=== PATIENT | female | born 1940 | race Caucasian/White ===

== ENCOUNTER → 2016-12-16 | Outpatient (CLI) | payer OTHER, MEDICARE ==
[~2016-12-16] MED LIST: ASCAUNK PO; ATOR-24 PO; BISA-16 PO; CALCTAB7 PO; CARV25TA PO; CIME-56 PO; CLOP1TAB54 PO; DIAZ5TAB PO; GABA800T PO; LCTS240 PO; LISI-461 PO; LORA10TA5 PO; LSX/40 PO; MCRK20 PO; MULTTAB58 PO; TOPI25TA10 PO; hydrocodone/apap PO
[2016-12-16 13:32] LABS: BLOOD UREA NITROGEN 14 mg/dl (7-18); BUN/CREATININE RATIO 14.7 (10-20); CALCIUM 8.9 mg/dl (8.5-10.1); CARBON DIOXIDE 25 mmol/L (21-32); CHLORIDE 110 mmol/L (98-107); CREATININE 0.95 mg/dl (0.60-1.20); GLUCOSE 82 mg/dl (70-99); POTASSIUM 4.3 mmol/L (3.5-5.1); SODIUM 144 mmol/L (136-145)
== END | disposition home or self-care (01) ==
LOC: C.LABMFLN 11:12
PROVIDERS: ATTEND Family Medicine
DX: I10 Essential (primary) hypertension (principal)

== ENCOUNTER → 2017-04-15 | Outpatient (CLI) | payer OTHER, MEDICARE ==
[2017-04-15 13:30] LABS: ALT/SGPT 32 U/L (12-78); BLOOD UREA NITROGEN 14 mg/dl (7-18); BUN/CREATININE RATIO 16.5 (10-20); CALCIUM 8.7 mg/dl (8.5-10.1); CARBON DIOXIDE 23 mmol/L (21-32); CHLORIDE 113 mmol/L (98-107); CHOLESTEROL 182 mg/dl (0-200); CREATININE 0.88 mg/dl (0.60-1.20); GLUCOSE 99 mg/dl (70-99); POTASSIUM 3.9 mmol/L (3.5-5.1); SODIUM 145 mmol/L (136-145)
[2017-04-15 13:37] LABS: CHOLESTEROL/HDL RATIO 2.3; HDL CHOLESTEROL 80 mg/dl; TRIGLYCERIDES 87 mg/dl (0-150); VERY LOW DENSITY LIPOPROT CALC 17 mg/dl
== END | disposition home or self-care (01) ==
LOC: C.LABMFLN 06:54
PROVIDERS: ATTEND Family Medicine
DX: I50.30 Unspecified diastolic (congestive) heart failure (principal); I25.10 Atherosclerotic heart disease of native coronary artery without angina pectoris

== ENCOUNTER → 2017-04-29 | Outpatient (CLI) | payer OTHER, MEDICARE | END | disposition home or self-care (01) | LOC: C.PATHSPEC 13:22 | PROVIDERS: ATTEND Family Medicine | DX: C44.722 Squamous cell carcinoma of skin of right lower limb, including hip (principal) ==

== ENCOUNTER → 2017-06-29 | Outpatient (CLI) | payer OTHER, MEDICARE | END | disposition home or self-care (01) | LOC: C.PATHSPEC 08:27 | PROVIDERS: ATTEND Family Medicine | DX: C44.92 Squamous cell carcinoma of skin, unspecified (principal) ==

== ENCOUNTER → 2018-01-28 | Outpatient (CLI) | payer OTHER, MEDICARE ==
[~2018-01-28] MED LIST changes: -LORA10TA5 PO; +LORA10TA6 PO
[2018-01-28 13:37] LABS: ALT/SGPT 33 U/L (12-78); BLOOD UREA NITROGEN 16 mg/dl (7-18); CARBON DIOXIDE 26 mmol/L (21-32); CHOLESTEROL 190 mg/dl (0-200); CREATININE 0.97 mg/dl (0.60-1.20); GLUCOSE 89 mg/dl (70-99); LDL CHOLESTEROL (DIRECT) 97 mg/dl; POTASSIUM 4.1 mmol/L (3.5-5.1); SODIUM 143 mmol/L (136-145)
== END | disposition home or self-care (01) ==
LOC: C.LABMFLN 08:26
PROVIDERS: ATTEND Family Medicine
DX: E78.00 Pure hypercholesterolemia, unspecified (principal); I11.0 Hypertensive heart disease with heart failure; I50.30 Unspecified diastolic (congestive) heart failure

== ENCOUNTER 2021-12-25 07:18 | Observation (INO) ==
--- NOTE | 2021-12-25 08:50 | History & Physical Report ---
Date of Service December 25, 2021 Assessment & Plan (1) Left bundle branch block: (2) CAD (coronary artery disease): (3) Cardiomyopathy: Plan: 1. Reduced EF with LBBB and persistent symptoms here for implant of BiV ICD History of Present Illness Chief Complaint: dyspnea Primary Care Provider: Ty Gerber MD Patient with a history of a non-schemic CM and LBBB. Persisitent NYHA class II symptoms and reduced EF. Allergies Allergy/AdvReac Type Severity Reaction Status Date / Time cortisone Allergy Intermediate face Verified 12/25/21 07:44 swelling lisinopril Allergy Intermediate face Verified 12/25/21 07:44 swelling atorvastatin AdvReac Unknown DIDN'T Verified 12/25/21 07:44 FEEL WELL Home Medications Medication Instructions Recorded Confirmed Type calcium carbonate 500 mg-vitamin 1 tab PO BID #180 tab 10/08/20 12/25/21 Rx D3 5 mcg (200 unit) tablet (Calcium 500 + D) tramadol 50 mg tablet 50 mg PO DAILY PRN #30 tab 04/25/21 12/25/21 Rx acetaminophen 650 mg 650 - 1,300 mg PO Q12H PRN 07/24/21 12/25/21 History tablet,extended release aspirin 81 mg chewable tablet 81 mg PO QAM 07/24/21 12/25/21 History carvedilol 25 mg tablet (Coreg) 25 mg PO Q12H 08/01/21 12/25/21 History gabapentin 100 mg capsule See Rx Instructions .ROUTE 09/08/21 12/25/21 Rx .COMPLEX #60 cap losartan 25 mg tablet 25 mg PO DAILY #30 tab 10/21/21 12/25/21 Rx ropinirole 3 mg tablet 3 mg PO HS #30 tab 10/24/21 12/25/21 Rx topiramate 50 mg tablet See Rx Instructions .ROUTE 10/24/21 12/25/21 Rx .COMPLEX #180 tab donepezil 10 mg tablet 10 mg PO DAILY 10/27/21 12/25/21 History duloxetine 30 mg capsule,delayed 30 mg PO DAILY 10/27/21 12/25/21 History release furosemide 40 mg tablet See Rx Instructions .ROUTE 10/27/21 12/25/21 Rx .COMPLEX #90 tablet multivitamin 1 tab PO QAM 10/27/21 12/25/21 History ropinirole 0.5 mg tablet 1 mg PO DAILY tab 10/27/21 12/25/21 History lactobacillus combination no.9 4 4,000 mmu cells PO DAILY 11/07/21 12/25/21 History billion cell capsule (Adult 50 Plus Probiotic) clopidogrel 75 mg tablet (Plavix) 75 mg PO QAM #90 tab 11/10/21 12/25/21 Rx Past Med/Surg History Medical History (Updated 11/24/21 @ 09:40 by Sabrina Ramirez PA-C) defect 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 otherwise mild nonobstructive CAD" Chronic combined systolic and diastolic CHF (congestive heart failure) EF 30-35% on May 2021 ECHO Chronic pain Secondary to nerve damage- mostly on right side of body Diastolic dysfunction Esophageal reflux disease Well controlled and stable Hypercholesterolemia Hypertension, benign Left bundle branch block Chronic Migraine HX Nasal fracture S/P FALL OCTOBER 2020 Non-ischemic cardiomyopathy Osteoarthritis Peripheral neuropathy RIGHT LEG Restless legs syndrome SOB (shortness of breath) on exertion SOMETIMES Spinal stenosis Transient ischemic attack (TIA) (~10/27/21) OVER 15 YEARS AGO/TAKING PLAVIX Surgical History History of back surgery laminctomy lumbar spine History of carpal tunnel release RT/LEFT History of cataract surgery RT/LEFT History of colonoscopy History of nasal septoplasty septo plasty and bilateral inferior turbinate reduction on 08/15/21 - Dr. Luevano History of neck surgery cervical laminectomy History of tonsillectomy and adenoidectomy Hx of tympanostomy tubes Maxillary fracture REPAIRED 10/2020 ([facility])- No issues with opening or closing jaw Family History Father Myocardial infarction Mother COPD (chronic obstructive pulmonary disease) Daughter Asthma Other Cancer Hearing loss No family history of adverse response to anesthesia Denies family history of Ovarian cancer Prostate cancer Breast cancer Colorectal cancer Hypertension Social History Smoking Status: Never smoker Second Hand Exposure: Yes (parents and in laws smoked. ); Hx Alcohol Use: No Hx Substance Use: No Preferred Language: Thai Communication Ability: Effective Visual Impairment: Partially Limited Hearing Ability: Use of Hearing Aid Cytotechnologist/Cytology Supervisor Required: No Beliefs That Will Affect Care: None marital status: Current Living Situation: Spouse current occupational status: retired How many Children do You have: 2 Other Information That Helps Us Care for You: No Feels Safe at Home: Yes Safety Concerns: Feels Safe At This Time Childhood Exposure to Second-Hand Smoke: Yes caffeine: Yes (coffee) during the past year weight has: remained stable Dental Care, Regularly: Yes Physical Activity Frequency: Does not Exercise Seatbelt Use: always Sunscreen Use: Yes Do you think of yourself as: straight/heterosexual Assistive Devices: None Review of Systems Review of Systems: per HPI Physical Exam Physical Exam: Alert Sclerae anicteric Normal respiratory effort Regular heart rhythm Minimal edema Results & Data Results & Data ([facility]) Vital Signs (Past 12 Hours) Vital Signs Temp Pulse Resp BP Pulse Ox 12/25/21 07:47 82 148/111 H 12/25/21 07:31 36.8 C 89 17 97
--- NOTE | 2021-12-25 08:51 | Pre Anesthesia Assessment ---
Date of Service December 25, 2021 Pre Sedation Assessment Vital Signs Temp Pulse Resp BP Pulse Ox 12/25/21 07:47 82 148/111 H 12/25/21 07:31 36.8 C 89 17 97 Cardiovascular + regular rate and + regular rhythm Respiratory + respiratory effort normal Pre-Sedation Airway Assessment Smoking Status: Never smoker Hx Sleep Apnea: No Hx Difficult Intubation: No Short, Thick Neck: No Thyromental Distance: > or= 3.5 Finger Breadths Oral Cavity: + WNL Mallampati Class: III ASA: ASA3 NPO Status Date of Last Intake of Fluids: 12/24/21 Date of Last Intake of Solid Food: 12/24/21 Procedure Planning Contraindications for Sedation: none Current Medications Reviewed: Yes Notes The planned sedation has been discussed with the patient. Informed Consent was obtained. I have identified the patient, determined the appropriateness of sedation and have assessed the patient immediately prior to the procedure. All medicine(s) and interventions are by my order.
[2021-12-25] MEDS ORDERED: VANCOMYCIN HCL 1000MG/20ML VIAL ONE (08:55)
[2021-12-25] MEDS ORDERED: BUPIVACAINE 0.25% 30 ML VIAL ONE (08:55)
[2021-12-25] MEDS ORDERED: LIDOCAINE 1% LOCAL 20 ML VIAL ONE (08:55)
[2021-12-25] MEDS ORDERED: WATER, STERILE FOR INJ 10 ML VIAL ONE (08:55)
[2021-12-25] MEDS ORDERED: MIDAZOLAM HCL 5 MG/ML 1 ML VIAL ONE (09:05)
[2021-12-25] MEDS ORDERED: ceFAZolin 330 MG/ML 1 GM VIAL ONE (09:05)
[2021-12-25] MEDS ORDERED: fentaNYL citrate 100 MCG/2 ML VIAL ONE (09:05)
[2021-12-25] MEDS ORDERED: oxyCODONE HCL IR 5 MG TAB (IMMEDIATE RELEASE) PO PRN (10:35)
--- NOTE | 2021-12-25 10:35 | Post Anesthesia Assessment ---
Date of Service December 25, 2021 Post Sedation Assessment Vital Signs Temp Pulse Resp BP Pulse Ox 12/25/21 07:47 82 148/111 H 12/25/21 07:31 36.8 C 89 17 97 Recovery Score Activity: Moves 4 extremities Respiration: Deep Breath/Cough Circulation: +/-20% PreAnes Value Consciousness: Fully Awake Oxygen Saturation: > 92% On Room Air Discharge Sedation Level of Care: Fast Track Phase II Post Sedation Plan On clinical assessment, the patient appears to have tolerated the sedation without complications. Patient is recovering as anticipated. Patient will continue to be monitored by nursing and may be discharged when sedation discharge criteria are met per below protocol. Upon Completions of procedure up to 15 minutes continue every 5 minute vital signs and the P.A.R. score; then discharge to a Phase I or Fast Track to Phase II per the following guidelines: * Discharge Patient to appropriate Phase II area if PAR is 8 or greater or return to pre- procedure baseline. The post - procedure orders will be as directed. * If PAR score is less than 8 or not return to pre-procedure baseline then patient will follow Phase I monitoring till PAR is reached for Phase II. The Phase I may be done in procedure room or may call to secure a Phase I area. * If naloxone or flumazenil are used for reversal, hold in Phase I for continued monitoring from when last reversal dose was given for a minimum of 60 minutes or longer pending the nurse and/or physician discretion of patient condition before discharge to Phase II. Please call the Sedation Physician to re-evaluate and complete post-note for discharge to Phase II area. Do NOT discharge from procedure sedation or Phase 1 until post- sedation evaluation note is complete by procedure /sedation MD Sedation Discharge Instructions to be given to the patient at discharge to home.
--- NOTE | 2021-12-25 10:35 | Electrophysiology Report ---
Date of Service December 25, 2021 Electrophysiology Procedure Electrophysiology Procedure Report Procedure performed: Implant of biventricular ICD Staff chief electrician: Salvador Lang MD Indication: The patient is an 81-year-old woman with a history of a nonischemic cardiomyopathy. She is on guideline directed medical therapy. She has an ejection fraction less than 35%. She has not suffered a myocardial infarction in the past 45 days or had revascularization in the last 90 days. She is [place] heart Association class 2 symptoms and the anticipated longevity greater than 1 year. She is therefore felt to be a good candidate for an ICD as primary prevention of sudden cardiac . Additionally, she has a left bundle branch block morphology on her EKG, is in a sinus rhythm and a QRS duration of 149 milliseconds. She was therefore felt to be a good candidate for BOAT DECKHAND. Procedure in detail: The patient was informed the risks benefits and alternatives to the intended procedure. She understood which proceed. She was taken to the electrophysiology suite in a fasting state. Conscious sedation was administered per protocol the patient was monitored electrocardiographically throughout today's procedure. Preoperative antibiotic was administered. The left upper pectoral areas prepped and draped in usual sterile fashion. This area was anesthetized using subcutaneous menstruation lidocaine solution. Incision was made at the site and carried down the prepectoralis fascia using sharp dissection. Electrocautery was also used for dissection as well as for hemostasis. A device pocket was fashioned tissues above the pectoralis muscle. Subsequent to this maneuver the left axillary vein was accessed 3 times using modified Seldinger technique. Sheaths were placed over guidewires initially used facilitate passage of the right ventricular and right atrial leads to the respective chambers under fluoroscopic guidance. Adequate sensing threshold parameters were obtained prior to active fixation of this lead to the endocardial surface. The proximal portion leads were then sutured to prepectoralis fascia using nonabsorbable suture. A sheath was placed over the remaining guidewire and used facilitate passage of the guiding catheter for engagement of the coronary sinus. Once engaged limited coronary sinus venography was performed in order to identify suitable target vessel. Once identified standard guidewire techniques were employed in order to deliver the pacing lead to the target vessel. Adequate sensing and threshold parameters as well as the absence of diaphragmatic stimulation for a short prior to removal of the guiding catheter. The proximal portion of lead was then sutured to prepectoralis fascia using nonabsorbable suture. The device pocket was irrigated with antibiotic solution. The leads were then attached to the device. The device and leads were then placed in the pocket the pocket was closed in 3 layers of absorbable suture. Steri-Strips and sterile dressing were applied. The device was tested noninvasively prior conclusion the procedure. The patient tolerated procedure well. There were no immediate complications. Equipment used: Pulse generator: Commercial Assistant [employer] Video. Model number [id number] serial number [id number] Right atrial lead: Commercial Assistant Medtronic model 5076 serial number [id number] Right ventricular lead: Commercial Assistant Medtronic model 6935 mm serial number [id number] Left ventricular lead: Commercial Assistant Medtronic model 4[place] [id number] V Measured data: Right atrial lead: P-waves measured 1 mV. Pacing threshold 1 volts at 0.4 milliseconds with a pacing impedance of 646 Ohms Right ventricular lead: R-waves measured 20 mV. Pacing threshold 0.75 volts at 0.4 millisecond with a pacing impedance of 475 Ohms Left ventricular lead: Pacing threshold 1.25 volts at 1 millisecond with a pacing impedance of 703 Ohms Impression: Successful implantation of biventricular ICD MNPG Electrophysiology codes Pacing Procedure 1: Pacin BiV electrode w/Pacer / ICD implant, add on code ICD Procedure 1: ICD: 81210 Insert single or dual ICD system PG Moderate Sedation Codes Moderate Sedation Codes Procedure 1: Sedation/Anesthesia: 09478 Mod Sedation by the same physician;Init15 Min Child Age 5 & Up Procedure 2: Sedation/Anesthesia: 61317 Mod Sedation by the same physician; Ea [id number] Minutes
[2021-12-25] MEDS ORDERED: traMADol HCL 50 MG TABLET PO PRN (10:37)
[2021-12-25] MEDS: carvediloL 25 MG TAB PO SCH ×2 (14:13→23:40)
[2021-12-25] MEDS: ACETAMINOPHEN 325 MG TAB PO PRN (14:28)
[2021-12-25] MEDS ORDERED: LOSARTAN POTASSIUM 25 MG TAB PO ONE (15:30)
[2021-12-25] MEDS: ceFAZolin 1000MG 1,000 MG/7.5 ML SYR IV SCH (20:09)
[2021-12-25] MEDS: CALCIUM 600MG + VIT D 400 IU TAB PO SCH (20:16)
[2021-12-25] MEDS ORDERED: TOPIRAMATE 50 MG TAB PO SCH (21:00)
[2021-12-25] MEDS ORDERED: GABAPENTIN 100 MG CAP PO SCH (21:00)
[2021-12-25] MEDS ORDERED: rOPINIRole HCL 1 MG TABLET PO SCH (21:00)
[2021-12-26] MEDS: ceFAZolin 1000MG 1,000 MG/7.5 ML SYR IV SCH (03:14)
[2021-12-26] MEDS: ACETAMINOPHEN 325 MG TAB PO PRN (08:10)
[2021-12-26] MEDS: CALCIUM 600MG + VIT D 400 IU TAB PO SCH (08:11)
[2021-12-26] MEDS ORDERED: MULTIVITAMIN TAB PO SCH (09:00)
[2021-12-26] MEDS ORDERED: DULoxetine HCL 30 MG CAP PO SCH (09:00)
[2021-12-26] MEDS ORDERED: rOPINIRole HCL 1 MG TABLET PO SCH (09:00)
[2021-12-26] MEDS ORDERED: ADVANCED PROBIOTIC 1250 MG CAPSULE PO SCH (09:00)
[2021-12-26] MEDS ORDERED: DONEPEZIL HCL 10 MG TAB PO SCH (09:00)
[2021-12-26] MEDS ORDERED: LOSARTAN POTASSIUM 25 MG TAB PO SCH (09:00)
[2021-12-26] MEDS ORDERED: CLOPIDOGREL BISULFATE 75 MG TAB PO SCH (09:00)
[2021-12-26] MEDS ORDERED: ASPIRIN 81 MG CHEW PO SCH (09:00)
--- NOTE | 2021-12-26 09:42 | XRay Report ---
XR chest 2V PA/lateral HISTORY: 81 years-old Female EXACT TIME ORDERED Evaluate for pneumothorax and l status post placemen t of a left subclavian pacer COMPARISON: None TECHNIQUE: PA and lateral views of the chest FINDINGS: The cardiac mediastinal and hilar silhouettes are within normal limits. Left subclavian pacer/AICD. N o postprocedural pneumothorax. No pleural effusion, airspace consolidation or overt pulmonary edema. Degenerative changes of the shoulders and spine. Calcified plaque the thoracic aorta. IMPRESSION: Status post placement of a left subclavian pacer/AICD. No postprocedural pneumothorax. ACT 112: Negative or not required by law. The above report was generated using voice recognition software. It may contain grammatical, syntax o r spelling errors. Electronically signed by: Nicolas Oliveira M.D. 12/26/2021 9:41 AM
[2021-12-26] MEDS ORDERED: FUROSEMIDE 40 MG/4 ML VIAL IV ONE (10:27)
--- NOTE | 2021-12-26 11:30 | Discharge Summary ---
Date of Service December 26, 2021 Admission HPI Per Admitting Provider Patient with a history of a non-schemic CM and LBBB. Persisitent NYHA class II symptoms and reduced EF. Principal Diagnosis Cardiomyopathy Discharge Exam At the time of discharge the patient had a very mild amount of swelling at the device implant site. There was ecchymosis but no drainage. Minimal tenderness. Discharge Data Allergies Allergy/AdvReac Type Severity Reaction Status Date / Time cortisone Allergy Intermediate face Verified 12/25/21 07:44 swelling lisinopril Allergy Intermediate face Verified 12/25/21 07:44 swelling atorvastatin AdvReac Unknown DIDN'T Verified 12/25/21 07:44 FEEL WELL Procedures Performed Operation Date: 12/25/21 08:30 Actual Procedures p ICD Insertion Single or Dual - Salvador Lang MD s Lead LV (No Priopr Implant) - Salvador Lang MD s Upgrade of any system to BIV - Salvador Lang MD s Venogram, Unilateral - Salvador Lang MD Ordered Studies 12/25/21 06:45 EP Lab Images for PACS ONCE Hospital Course (1) Left bundle branch block: (2) CAD (coronary artery disease): (3) Cardiomyopathy: 1. Reduced EF with LBBB and persistent symptoms here for implant of BiV ICD On the day of admission the patient underwent successful implantation of a biventricular ICD. There were no immediate complications. Following morning device interrogation revealed normal device function with some diaphragmatic stimulation at the programmed vector. Reprogramming eliminated this problem. Chest x-ray demonstrated stable lead position without pneumothorax. Total Time Total Time Spent Total Time Spent (In Minutes): 20 Discharge Plan Discharge Items Patient Disposition: Home - Self-Care Reason For Visit: BIV ICD Discharge Diagnosis: cardiomyopathy Condition on Discharge: Good Activity: Per Instructions section Activity Comment: No lifting left arm above shoulder behind neck for 6 weeks Lifting: No more than 10 pounds Bathing: Keep incision dry Bathing Comment: Keep wound dry and Steri-Strips intact until follow-up next week Driving/Machine Use: Resume 1 day after discharge Non-emergency contact: Photocopying Machine Operator Call non-emergency contact if: your pain is worsening, you have a fever, your wound has increased redness and your wound has increased drainage Follow-up/Referrals: Ty Gerber MD [Primary Care Provider] - 12/29/21 8:00 am Diet: Heart Healthy Addtl Attending Provider Instructions: Follow-up [facility] 01/16 at 10:20 a.m. for nurse wound check Pending Studies at Discharge: No Stand-Alone Forms: My [facility], Smoking Cessation Medications and DC Order Prescriptions: Continued gabapentin 100 mg capsule See Rx Instructions .ROUTE .COMPLEX Qty: 60 RF: 5 topiramate 50 mg tablet See Rx Instructions .ROUTE .COMPLEX Qty: 180 RF: 0 ropinirole 3 mg tablet 3 mg PO HS Qty: 30 RF: 2 furosemide 40 mg tablet See Rx Instructions .ROUTE .COMPLEX Qty: 90 RF: 1 clopidogrel [Plavix] 75 mg tablet 75 mg PO QAM Qty: 90 RF: 3 Adult 50 Plus Probiotic 4 billion cell capsule 4,000 mmu cells PO DAILY RF: 0 duloxetine 30 mg capsule,delayed release(DR/EC) 30 mg PO DAILY RF: 0 donepezil 10 mg tablet 10 mg PO DAILY RF: 0 calcium carbonate-vitamin D3 [Calcium 500 + D] 500 mg(1,250mg) -200 unit tablet 1 tab PO BID Qty: 180 RF: 3 tramadol 50 mg tablet 50 mg PO DAILY PRN (Reason: Pain) Qty: 30 RF: 5 ropinirole 0.5 mg tablet 1 mg PO DAILY RF: 0 multivitamin Tablet 1 tab PO QAM RF: 0 losartan 25 mg tablet 25 mg PO DAILY Qty: 30 RF: 2 aspirin 81 mg tablet,chewable 81 mg PO QAM RF: 0 acetaminophen 650 mg Tablet Extended Release 650 - 1,300 mg PO Q12H PRN (Reason: Pain) RF: 0 carvedilol [Coreg] 25 mg tablet 25 mg PO Q12H RF: 0 Discharge Orders: Discharge Order (Routine); Ordered 12/26/21 Ordered By: Salvador Lang Admission Data Admit Date/Time: 12/25/21 12:12 Attending Provider: Salvador Lang Admit Provider: Salvador Lang Primary Care Provider: Ty Gerber Other Interventions: Discharge Summary Assessment (RN) Last Done: 12/26/21 11:08 Coding Level of Care Code 34872 OBS Care - Discharge Diagnoses Left bundle branch block I44.7 CAD (coronary artery disease) I25.10 Cardiomyopathy I42.9
--- NOTE | 2021-12-26 12:03 | Electrocardiogram Report ---
Test Reason : Blood Pressure : / mmHG Vent. Rate : 101 BPM Atrial Rate : 101 BPM P-R Int : 138 ms QRS Dur : 118 ms QT Int : 404 ms P-R-T Axes : 049 027 006 degrees QTc Int : 523 ms Atrial-sensed ventricular-paced rhythm Biventricular pacemaker detected Abnormal ECG No previous ECGs available Confirmed by Salvador Lang ([id number]) on 12/26/2021 12:03:23 PM Referred By: Ambrocio Lang Confirmed By:Ambrocio Lang
[2021-12-26] MEDS: carvediloL 25 MG TAB PO SCH (12:43)
== END 2021-12-26 14:47 | disposition home or self-care (01) ==
LOC: EP 07:18 → 2E 07:18
PROC: EPB.ICD (2021-12-25 08:30)

== ENCOUNTER 2021-12-30 16:53 | Inpatient (IN) ==
--- NOTE | 2021-12-30 17:21 | Emergency Department Note ---
Impression & Plan C. difficile diarrhea, Hypomagnesemia, Acute hypokalemia, Acute dehydration ED Provider Note NAME: GERARDO CHOWDHURY AGE: 81 SEX: F : 1940 ARRIVES VIA: Walk-In INFORMANT: Patient, ED PROVIDER(S): Jason Thibodeaux MD Chief Complaint: Diarrhea, weakness, possible UTI HPI: Patient presents with family due to the above concerns which have gotten progressively worse. The patient states that she developed diarrhea on Wednesday and had had an AICD defibrillator pacemaker placed on with Dr. Heath. Patient denies any fevers or chills. The patient states she has had about 8 bowel movements per day but denies any blood in the stool. The patient denies any changes in medications, diet and no stream or well water. No known sick contacts or recent travel. The patient was recently hospitalized for her procedure. Patient does have some chronic lower extremity swelling but it is fairly unchanged. The patient has not had any nausea or vomiting. Patient does have chronic cough which is unchanged from prior. Patient is a non-smoker. Patient is vaccinated for COVID-19. ROS: See HPI for pertinent positives and negatives. A total of 10 systems were reviewed and otherwise negative. Past medical history: See below Surgical history: See below Social history: See below Physical Exam: GENERAL: NAD, wearing glasses, wearing a mask, non-toxic. EYE EXAM: Normal conjunctiva. PERRL, no anisocoria and EOM's grossly intact w/o pain. OROPHARYNX: Moist mucus membranes. Grossly normal dentition. NECK: Supple, no nuchal rigidity, no adenopathy, non-tender. No signs of meningismus. Chest: Left-sided swelling over the defibrillator/pacer pocket with associated ecchymosis but no active drainage or bleeding. LUNGS: Clear to auscultation. Normal chest wall mechanics. HEART: NSR, no MRG. ABDOMEN: Abdomen soft, non-tender, normo-active bowel sounds, no masses, no rebound or guarding. BACK: No CVA TTP. SKIN: No rashes and no bruising. UPPER EXTREMITIES: Upper extremities are grossly normal. LOWER EXTREMITIES: Grossly normal, no edema. NEURO EXAM: A&O x3, cranial nerves II-XII grossly intact, normal speech, moves all 4 extremities on command w/o issue. Differential diagnoses: Infection, dehydration, metabolic abnormality, hypo/hyperglycemia, electrolyte disturbance, anemia, hypoxia, cardiac sources, intracerebral event, toxicologic, neurologic, as well as other pathologies. Course: Patient was seen and evaluated the bedside. Full history physical exam was performed. EKG interpreted by me AV paced rhythm with PVCs. Rate of 93, wide QRS, left bundle branch block pattern. Imaging Studies: See Below Cardiac monitoring: An order was placed for continuous cardiac monitoring. The monitor shows a rate of 92 with sinus rhythm. MDM: Patient was seen due to concern for diarrhea. Work was obtained. Patient is white count of 13 with a normal H&H and platelet count. The patient's kidney function is unremarkable with the patient does have hypomagnesemia and hypokalemia. Given the patient's recent pacemaker defibrillator placement believe the patient would benefit from admission observation replacement of electrolytes. Magnesium potassium ordered. Urinalysis with no obvious signs of infection. Patient did have a stool culture completed which showed that she was positive for C. difficile. This was conveyed to the hospitalist and the patient was admitted to Dr. Montilla. 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 otherwise mild nonobstructive CAD" Chronic combined systolic and diastolic CHF (congestive heart failure) EF 30-35% on May 2021 ECHO Chronic pain Secondary to nerve damage- mostly on right side of body Diastolic dysfunction Esophageal reflux disease Well controlled and stable Hypercholesterolemia Hypertension, benign Left bundle branch block Chronic Migraine HX Nasal fracture S/P FALL OCTOBER 2020 Non-ischemic cardiomyopathy Osteoarthritis Peripheral neuropathy RIGHT LEG Restless legs syndrome SOB (shortness of breath) on exertion SOMETIMES Spinal stenosis Transient ischemic attack (TIA) (~10/27/21) OVER 15 YEARS AGO/TAKING PLAVIX Surgical History History of back surgery laminctomy lumbar spine History of carpal tunnel release RT/LEFT History of cataract surgery RT/LEFT History of colonoscopy History of nasal septoplasty septo plasty and bilateral inferior turbinate reduction on 08/15/21 - Dr. Luevano History of neck surgery cervical laminectomy History of tonsillectomy and adenoidectomy Hx of tympanostomy tubes Maxillary fracture REPAIRED 10/2020 ([facility])- No issues with opening or closing jaw Pacemaker Family History Father Myocardial infarction Mother COPD (chronic obstructive pulmonary disease) Daughter Asthma Other Cancer Hearing loss No family history of adverse response to anesthesia Denies family history of Ovarian cancer Prostate cancer Breast cancer Colorectal cancer Hypertension Social History Smoking Status: Never smoker Second Hand Exposure: Yes (parents and in laws smoked. ); Hx Alcohol Use: No Hx Substance Use: No Preferred Language: [place] Communication Ability: Effective Visual Impairment: Partially Limited Hearing Ability: Use of Hearing Aid Retail Agent Required: No Beliefs That Will Affect Care: None marital status: Current Living Situation: Spouse current occupational status: retired How many Children do You have: 2 Feels Safe at Home: Yes Childhood Exposure to Second-Hand Smoke: Yes caffeine: Yes (coffee) during the past year weight has: remained stable Dental Care, Regularly: Yes Physical Activity Frequency: Does not Exercise Seatbelt Use: always Sunscreen Use: Yes Do you think of yourself as: straight/heterosexual Assistive Devices: None Allergies Allergies Allergy/AdvReac Type Severity Reaction Status Date / Time cortisone Allergy Intermediate face Verified 12/30/21 18:24 swelling lisinopril Allergy Intermediate face Verified 12/30/21 18:24 swelling atorvastatin AdvReac Unknown DIDN'T Verified 12/30/21 18:24 FEEL WELL Home Meds Home Medications Medication Instructions Recorded Confirmed acetaminophen 650 mg 650 - 1,300 mg PO Q12H PRN 07/24/21 12/30/21 tablet,extended release aspirin 81 mg chewable tablet 81 mg PO QAM 07/24/21 12/30/21 carvedilol 25 mg tablet (Coreg) 25 mg PO Q12H 08/01/21 12/30/21 donepezil 10 mg tablet 10 mg PO DAILY 10/27/21 12/30/21 duloxetine 30 mg capsule,delayed 30 mg PO DAILY 10/27/21 12/30/21 release multivitamin 1 tab PO QAM 10/27/21 12/30/21 ropinirole 0.5 mg tablet 1 mg PO QDL tab 10/27/21 12/30/21 lactobacillus combination no.9 4 4,000 mmu cells PO DAILY 11/07/21 12/30/21 billion cell capsule (Adult 50 Plus Probiotic) furosemide 40 mg tablet 40 mg PO DAILY 12/30/21 12/30/21 gabapentin 100 mg capsule 200 mg PO HS 12/30/21 12/30/21 losartan 25 mg tablet 25 mg PO DAILY 12/30/21 12/30/21 pravastatin 80 mg tablet 80 mg PO DAILY 12/30/21 12/30/21 topiramate 50 mg tablet 100 mg PO HS 12/30/21 12/30/21 Previous Rx's Medication Instructions Recorded calcium carbonate 500 mg-vitamin 1 tab PO BID #180 tab 10/08/20 D3 5 mcg (200 unit) tablet (Calcium 500 + D) tramadol 50 mg tablet 50 mg PO DAILY PRN #30 tab 04/25/21 ropinirole 3 mg tablet 3 mg PO HS #30 tab 10/24/21 clopidogrel 75 mg tablet (Plavix) 75 mg PO QAM #90 tab 11/10/21 Results & Data (ED) Vital Signs Vital Signs - 24 hr 12/30/21 16:59 12/30/21 17:30 12/30/21 18:00 Temperature 36.6 C Temperature Source Temporal Artery Scan Pulse Rate 95 H 97 H 102 H Pulse Rate from SpO2 Sensor 96 H 84 Respiratory Rate 16 21 15 Respiratory Effort / Characteristics Non-Labored Spontaneous Respiratory Depth Normal Respiratory Pattern Regular Blood Pressure 121/65 144/76 H 134/83 Blood Pressure Mean 83 98 100 Pulse Oximetry 97 98 98 Oxygen Delivery Method Room Air Room Air Room Air Sepsis Recent Fever Within 48 Hours No Sepsis New/Unexplained Change in Mental Status No Sepsis Action Taken by Nursing No Action Required 12/30/21 18:30 12/30/21 18:56 12/30/21 19:31 Temperature Temperature Source Pulse Rate 93 H 97 H 99 H Pulse Rate from SpO2 Sensor Respiratory Rate 22 16 13 Respiratory Effort / Characteristics Respiratory Depth Respiratory Pattern Blood Pressure 150/59 H 151/59 H 132/73 Blood Pressure Mean 89 89 92 Pulse Oximetry 97 99 100 Oxygen Delivery Method Room Air Room Air Room Air Sepsis Recent Fever Within 48 Hours Sepsis New/Unexplained Change in Mental Status Sepsis Action Taken by Nursing 12/30/21 20:30 Temperature Temperature Source Pulse Rate 96 H Pulse Rate from SpO2 Sensor Respiratory Rate 16 Respiratory Effort / Characteristics Respiratory Depth Respiratory Pattern Blood Pressure 109/61 Blood Pressure Mean 77 Pulse Oximetry 98 Oxygen Delivery Method Room Air Sepsis Recent Fever Within 48 Hours Sepsis New/Unexplained Change in Mental Status Sepsis Action Taken by Skilled Nursing Medications Current Medication List: was personally reviewed by me Laboratory Data Attestation: I reviewed the patient's lab results. Result diagrams: 12/30/21 17:30 12/30/21 17:30 Lab Results 12/30/21 12/30/21 12/30/21 Range/Units 17:30 17:30 17:30 WBC 13.83 H (4.8-10.8) K/uL RBC 3.95 L (4.2-5.4) M/uL Hgb 12.7 (12.0-16.0) g/dL Hct 38.7 (37-47) % MCV 98.0 (80-100) fL MCH 32.2 (25-34) pg MCHC 32.8 (32-36) g/dL RDW Std Deviation 47.6 H (36.4-46.3) fL RDW Coeff of Shahrzad 13.2 (11.5-14.5) % Plt Count 164 (130-400) K/uL MPV 10.6 H (7.4-10.4) fL Immature Gran % (Auto) 0.2 % Neut % (Auto) 79.9 % Lymph % (Auto) 6.9 % Knott % (Auto) 12.4 % Eos % (Auto) 0.4 % Baso % (Auto) 0.2 % Neut # (Auto) 11.05 H (1.4-6.5) K/uL Lymph # (Auto) 0.96 L (1.2-3.4) K/uL Knott # (Auto) 1.71 H (0.11-0.59) K/uL Eos # (Auto) 0.05 (0-0.5) K/uL Baso # (Auto) 0.03 (0-0.2) K/uL Immature Gran # (Auto) 0.03 H (0.00-0.02) K/uL Toxic Granulation 1+ Sodium 136 (136-145) mmol/L Potassium 2.6 L (3.5-5.1) mmol/L Chloride 101 (98-107) mmol/L Carbon Dioxide 24 (21-32) mmol/L Anion Gap 11 (3-11) BUN 21 (6-23) mg/dl Creatinine 0.90 (0.6-1.2) mg/dl Est Cr Clr Drug Dosing 41.0 ml/min Est GFR ( Amer) 69.5 ml/min Est GFR (Non-Af Amer) 60.0 ml/min BUN/Creatinine Ratio 23.3 H (10-20) Glucose 128 H (70-99(Fasting)) mg/dl Calcium 9.0 (8.5-10.1) mg/dl Magnesium 1.6 L (1.7-2.4) mg/dl Total Bilirubin 0.7 (0.2-1.0) mg/dl AST 19 (13-39) U/L ALT 6 L (7-52) U/L Alkaline Phosphatase 50 (34-104) U/L Troponin I 0.03 (0-0.04) ng/ml Total Protein 6.4 (6.0-8.3) gm/dl Albumin 3.8 (3.4-5.0) gm/dl Globulin 2.6 (2.5-4.0) gm/dl Albumin/Globulin Ratio 1.5 (0.9-2) TSH 2.404 (0.300-4.500) uIu/ml Urine Color Urine Appearance (Clear) Urine pH (4.5-7.5) Ur Specific [place] (1.000-1.030) Urine Protein (Negative) Urine Glucose (UA) (Negative) Urine Ketones (Negative) Urine Blood (Negative) Urine Nitrite (Negative) Urine Bilirubin (Negative) Urine Urobilinogen (Negative) Ur Leukocyte Esterase (Negative) Urine WBC (Auto) (0-5) /hpf Urine RBC (Auto) (0-4) /hpf U Hyaline Cast (Auto) (0-5) /lpf U Epithel Cells (Auto) (0-5) /lpf Urine Bacteria (Auto) (Negative) Stl C. cayetanensis PCR (NotDetected) Stool Rotavirus A PCR (NotDetected) Stl Adenov F 40/41 PCR (NotDetected) Stool Astrovirus (PCR) (NotDetected) Stool Campylobacter PCR (NotDetected) Stl C.difficile Tox A&B (Negative) Stl C. diff Tox A/B PCR (NotDetected) Stool Cryptosporidium PCR (NotDetected) Stl E.coli Shiga Tox PCR (NotDetected) Stl Enterotoxigenic E PCR (NotDetected) Stool EPEC (PCR) (NotDetected) Stool EAEC (PCR) (NotDetected) Stl E. histolytica PCR (NotDetected) Stool Giardia Lamblia PCR (NotDetected) Stool Salmonella PCR (NotDetected) Stool Sapovirus (PCR) (NotDetected) Stl P. shigelloides PCR (NotDetected) Stl Shigella/EIEC PCR (NotDetected) St Y.enterocolitica PCR (NotDetected) Stool Vibrio (PCR) (NotDetected) Stl Vibrio cholerae PCR (NotDetected) Stl Norovirus GI/GII PCR (NotDetected) SARS-CoV-2, RNA, NAAT (NEGATIVE) 12/30/21 12/30/21 12/30/21 Range/Units 18:06 18:06 18:19 WBC (4.8-10.8) K/uL RBC (4.2-5.4) M/uL Hgb (12.0-16.0) g/dL Hct (37-47) % MCV (80-100) fL MCH (25-34) pg MCHC (32-36) g/dL RDW Std Deviation (36.4-46.3) fL RDW Coeff of Shahrzad (11.5-14.5) % Plt Count (130-400) K/uL MPV (7.4-10.4) fL Immature Gran % (Auto) % Neut % (Auto) % Lymph % (Auto) % Knott % (Auto) % Eos % (Auto) % Baso % (Auto) % Neut # (Auto) (1.4-6.5) K/uL Lymph # (Auto) (1.2-3.4) K/uL Knott # (Auto) (0.11-0.59) K/uL Eos # (Auto) (0-0.5) K/uL Baso # (Auto) (0-0.2) K/uL Immature Gran # (Auto) (0.00-0.02) K/uL Toxic Granulation Sodium (136-145) mmol/L Potassium (3.5-5.1) mmol/L Chloride (98-107) mmol/L Carbon Dioxide (21-32) mmol/L Anion Gap (3-11) BUN (6-23) mg/dl Creatinine (0.6-1.2) mg/dl Est Cr Clr Drug Dosing ml/min Est GFR ( Amer) ml/min Est GFR (Non-Af Amer) ml/min BUN/Creatinine Ratio (10-20) Glucose (70-99(Fasting)) mg/dl Calcium (8.5-10.1) mg/dl Magnesium (1.7-2.4) mg/dl Total Bilirubin (0.2-1.0) mg/dl AST (13-39) U/L ALT (7-52) U/L Alkaline Phosphatase (34-104) U/L Troponin I (0-0.04) ng/ml Total Protein (6.0-8.3) gm/dl Albumin (3.4-5.0) gm/dl Globulin (2.5-4.0) gm/dl Albumin/Globulin Ratio (0.9-2) TSH (0.300-4.500) uIu/ml Urine Color Yellow Urine Appearance Clear (Clear) Urine pH 6.0 (4.5-7.5) Ur Specific [place] 1.011 (1.000-1.030) Urine Protein Negative (Negative) Urine Glucose (UA) Negative (Negative) Urine Ketones Trace H (Negative) Urine Blood Negative (Negative) Urine Nitrite Negative (Negative) Urine Bilirubin Negative (Negative) Urine Urobilinogen Negative (Negative) Ur Leukocyte Esterase Trace H (Negative) Urine WBC (Auto) 1-5 (0-5) /hpf Urine RBC (Auto) 0-4 (0-4) /hpf U Hyaline Cast (Auto) 1-5 (0-5) /lpf U Epithel Cells (Auto) 20-30 H (0-5) /lpf Urine Bacteria (Auto) Negative (Negative) Stl C. cayetanensis PCR Not Detected (NotDetected) Stool Rotavirus A PCR Not Detected (NotDetected) Stl Adenov F 40/41 PCR Not Detected (NotDetected) Stool Astrovirus (PCR) Not Detected (NotDetected) Stool Campylobacter PCR Not Detected (NotDetected) Stl C.difficile Tox A&B Positive Cdiff Toxin A* (Negative) Stl C. diff Tox A/B PCR C.diff Gene Detected A (NotDetected) Stool Cryptosporidium PCR Not Detected (NotDetected) Stl E.coli Shiga Tox PCR Not Detected (NotDetected) Stl Enterotoxigenic E PCR Not Detected (NotDetected) Stool EPEC (PCR) Not Detected (NotDetected) Stool EAEC (PCR) Not Detected (NotDetected) Stl E. histolytica PCR Not Detected (NotDetected) Stool Giardia Lamblia PCR Not Detected (NotDetected) Stool Salmonella PCR Not Detected (NotDetected) Stool Sapovirus (PCR) Not Detected (NotDetected) Stl P. shigelloides PCR Not Detected (NotDetected) Stl Shigella/EIEC PCR Not Detected (NotDetected) St Y.enterocolitica PCR Not Detected (NotDetected) Stool Vibrio (PCR) Not Detected (NotDetected) Stl Vibrio cholerae PCR Not Detected (NotDetected) Stl Norovirus GI/GII PCR Not Detected (NotDetected) SARS-CoV-2, RNA, NAAT NEGATIVE (NEGATIVE) Administered Medications Carvedilol (Carvedilol 25 Mg Tab) 25 mg PO Q12H HAYDEE Stop: 01/29/22 19:29 Last Admin: 12/30/21 19:44 Dose: 25 mg Documented by: [id number] Gabapentin (Gabapentin 100 Mg Cap) 200 mg PO HS HAYDEE Stop: 01/29/22 20:59 Last Admin: 12/30/21 20:03 Dose: 200 mg Documented by: [id number] Losartan Potassium (Losartan Potassium 25 Mg Tab) 25 mg PO DAILY HAYDEE Stop: 01/29/22 19:29 Last Admin: 12/30/21 19:44 Dose: 25 mg Documented by: [id number] Discontinued Medications Sodium Chloride (Nss 1000ml) 500 mls @ 999 mls/hr IV .Q31M ONE Stop: 12/30/21 18:27 Last Infusion: 12/30/21 18:45 Dose: 0 mls/hr Documented by: [id number] Admin: 12/30/21 18:02 Dose: 999 mls/hr Documented by: [id number] Magnesium Sulfate/Dextrose (Magnesium Sulfate / D5w) 1 gm in 100 mls @ 100 mls/hr IV NOW STA Stop: 12/30/21 19:57 Last Infusion: 12/30/21 20:30 Dose: 0 mls/hr Documented by: [id number] Admin: 12/30/21 19:30 Dose: 100 mls/hr Documented by: [id number] Potassium Chloride (K Garrison / Wtr) 10 meq in 100 mls @ 100 mls/hr IV ONE ONE; Protocol Stop: 12/30/21 19:57 Last Admin: 12/30/21 20:50 Dose: 100 mls/hr Documented by: [id number] Ondansetron HCl (Ondansetron Inj 2 Mg/Ml 2 Ml Vial) Confirm Administered Dose 4 mg .ROUTE .STK-MED ONE Stop: 12/30/21 20:10 Last Admin: 12/30/21 20:20 Dose: Not Given Documented by: [id number] Ondansetron HCl (Ondansetron Inj 2 Mg/Ml 2 Ml Vial) 4 mg IV NOW STA Stop: 12/30/21 20:11 Last Admin: 12/30/21 20:33 Dose: 4 mg Documented by: [id number] Potassium Chloride (Potassium Chloride Crtab 20 Meq Tabcr) 40 meq PO NOW STA Stop: 12/30/21 18:59 Last Admin: 12/30/21 19:30 Dose: 40 meq Documented by: [id number] Imaging Data Radiologist's Impression: Chest X-Ray 12/30/21 17:57 XR chest 1V portable CLINICAL HISTORY: Weakness. COMPARISON STUDY: Chest radiograph December 26, 2021. FINDINGS: Left subclavian biventricular pacer/AICD is in place. There is no evidence for pulmonary edema. No pneumothorax or pleural effusion. No consolidation. Cardiac size is at the upper limits of normal. Skinfold projects over the left chest. IMPRESSION: No acute cardiopulmonary findings. ACT 112: Negative or not required by law. Electronically signed by: Kristian Rousseau M.D. 12/30/2021 7:03 PM Discharge Plan Visit Data Chief Complaint: Diarrhea Stated Complaint: DIARRHEA, NOT EATING, DIZZY, CONFUSION, POSS UTI ED Provider: Jason Thibodeaux Discharge Problem: C. difficile diarrhea, Hypomagnesemia, Acute hypokalemia, Acute dehydration Patient Disposition: Admitted As Inpatient Forms Stand Alone Forms: My [facility] Prescriptions Prescriptions: No Action ropinirole 3 mg tablet 3 mg PO HS Qty: 30 RF: 2 clopidogrel [Plavix] 75 mg tablet 75 mg PO QAM Qty: 90 RF: 3 Adult 50 Plus Probiotic 4 billion cell capsule 4,000 mmu cells PO DAILY RF: 0 duloxetine 30 mg capsule,delayed release(DR/EC) 30 mg PO DAILY RF: 0 donepezil 10 mg tablet 10 mg PO DAILY RF: 0 calcium carbonate-vitamin D3 [Calcium 500 + D] 500 mg(1,250mg) -200 unit tablet 1 tab PO BID Qty: 180 RF: 3 tramadol 50 mg tablet 50 mg PO DAILY PRN (Reason: Pain) Qty: 30 RF: 5 ropinirole 0.5 mg tablet 1 mg PO QDL RF: 0 multivitamin Tablet 1 tab PO QAM RF: 0 pravastatin 80 mg tablet 80 mg PO DAILY RF: 0 losartan 25 mg Tablet 25 mg PO DAILY RF: 0 furosemide 40 mg tablet 40 mg PO DAILY RF: 0 gabapentin 100 mg capsule 200 mg PO HS RF: 0 topiramate 50 mg tablet 100 mg PO HS RF: 0 aspirin 81 mg tablet,chewable 81 mg PO QAM RF: 0 acetaminophen 650 mg Tablet Extended Release 650 - 1,300 mg PO Q12H PRN (Reason: Pain) RF: 0 carvedilol [Coreg] 25 mg tablet 25 mg PO Q12H RF: 0 Referrals Referrals: Ty Gerber MD [Primary Care Provider] -
[2021-12-30] MEDS ORDERED: SODIUM CHLORIDE 0.9% 1000ML 500 ML IV ONE (17:57)
[2021-12-30 18:08] LABS: Hematocrit (blood only) 38.7 % (37-47); Hemoglobin 12.7 g/dL (12.0-16.0); Mean Corpuscular Hemoglobin 32.2 pg (25-34); Mean Corpuscular Hgb Conc 32.8 g/dL (32-36); Mean Platelet Volume 10.6 fL (7.4-10.4); Platelet Count 164 K/uL (130-400); RDW Coefficient of Variation 13.2 % (11.5-14.5); RDW Standard Deviation 47.6 fL (36.4-46.3); Red Blood Count 3.95 M/uL (4.2-5.4); White Blood Count 13.83 K/uL (4.8-10.8)
[2021-12-30 18:20] LABS: Albumin Globulin Ratio 1.5 (0.9-2); Albumin Level 3.8 gm/dl (3.4-5.0); BUN Creatinine Ratio 23.3 (10-20); Bilirubin,Total 0.7 mg/dl (0.2-1.0); Est GFR (African American) 69.5 ml/min; Globulin 2.6 gm/dl (2.5-4.0); Magnesium 1.6 mg/dl (1.7-2.4); Potassium 2.6 mmol/L (3.5-5.1); Total Protein 6.4 gm/dl (6.0-8.3)
[2021-12-30 18:22] LABS: Troponin I 0.03 ng/ml (0-0.04)
[2021-12-30 18:56] LABS: Basophils # (auto) 0.03 K/uL (0-0.2); Basophils % (auto) 0.2 %; Eosinophils # (auto) 0.05 K/uL (0-0.5); Eosinophils % (auto) 0.4 %; Immature Granulocytes # (auto) 0.03 K/uL (0.00-0.02); Immature Granulocytes % (auto) 0.2 %; Lymphocytes # (auto) 0.96 K/uL (1.2-3.4); Lymphocytes % (auto) 6.9 %; Monocytes # (auto) 1.71 K/uL (0.11-0.59); Monocytes % (auto) 12.4 %; Neutrophils # (auto) 11.05 K/uL (1.4-6.5); Neutrophils % (auto) 79.9 %; Toxic Granulation 1+
[2021-12-30] MEDS ORDERED: POTASSIUM CHLORIDE CRTAB 20 MEQ TABCR PO STA (18:58)
[2021-12-30] MEDS ORDERED: MAGNESIUM SULFATE / D5W 1 GM/100 ML BAG IV STA (18:58)
[2021-12-30] MEDS ORDERED: POTASSIUM CHLORIDE / WTR 10 MEQ/100 ML PLCT IV ONE (18:58)
--- NOTE | 2021-12-30 19:04 | XRay Report ---
XR chest 1V portable CLINICAL HISTORY: Weakness. COMPARISON STUDY: Chest radiograph December 26, 2021. FINDINGS: Left subclavian biventricular pacer/AICD is in place. There is no evidence for pulmonary ed ernestine. No pneumothorax or pleural effusion. No consolidation. Cardiac size is at the upper limits of no rmal. Skinfold projects over the left chest. IMPRESSION: No acute cardiopulmonary findings. ACT 112: Negative or not required by law. Electronically signed by: Kristian Rousseau M.D. 12/30/2021 7:03 PM
[2021-12-30 19:28] LABS: Appearance Urine Clear (Clear); Bacteria Urine Automated Negative (Negative); Bilirubin Urine Negative (Negative); Blood Urine Negative (Negative); Color Urine Yellow; Epithelial Cell Urine Auto 20-30 /lpf (0-5); Glucose Urine UA Negative (Negative); Ketones Urine Trace (Negative); Leukocyte Esterase Urine Trace (Negative); Nitrite Urine Negative (Negative); Protein Urine Negative (Negative); RBC Urine Automated 0-4 /hpf (0-4); Specific Gravity Urine 1.011 (1.000-1.030); Urobilinogen Urine Negative (Negative)
[2021-12-30] MEDS ORDERED: LOSARTAN POTASSIUM 25 MG TAB PO SCH (19:30)
[2021-12-30] MEDS ORDERED: carvediloL 25 MG TAB PO SCH (19:30)
[2021-12-30] MEDS: GABAPENTIN 100 MG CAP PO SCH (20:03)
[2021-12-30] MEDS ORDERED: ONDANSETRON INJ 2 MG/ML 2 ML VIAL ONE (20:09)
[2021-12-30] MEDS ORDERED: ONDANSETRON INJ 2 MG/ML 2 ML VIAL IV STA (20:10)
[2021-12-30 20:34] LABS: Adenovirus F 40/41 PCR Not Detected (NotDetected); Astrovirus PCR Not Detected (NotDetected); Campylobacter PCR Not Detected (NotDetected); Cryptosporidium PCR Not Detected (NotDetected); Cyclospora cayetanensis PCR Not Detected (NotDetected); Entamoeba histolytica PCR Not Detected (NotDetected); Enteroaggregative E.coli(EAEC) Not Detected (NotDetected); Enteropathogenic E.coli (EPEC) Not Detected (NotDetected); Enterotoxigenic E.coli (ETEC) Not Detected (NotDetected); Giardia lamblia PCR Not Detected (NotDetected); Norovirus GI/GII PCR Not Detected (NotDetected); Plesiomonas shigelloides PCR Not Detected (NotDetected); Rotavirus A PCR Not Detected (NotDetected); Salmonella PCR Not Detected (NotDetected); Sapovirus PCR Not Detected (NotDetected); Shiga-like Toxin E.coli (STEC) Not Detected (NotDetected); Shigella/Enteroinvasive E.coli Not Detected (NotDetected); Vibrio cholerae PCR Not Detected (NotDetected); Vibrio species PCR Not Detected (NotDetected); Yersinia enterocolitica PCR Not Detected (NotDetected)
--- NOTE | 2021-12-30 20:44 | History & Physical Report ---
Date of Service December 30, 2021 Assessment & Plan (1) C. difficile diarrhea: Plan: C. difficile precautions Vancomycin 250 mg p.o. 4 times daily IV fluids for rehydration (2) Hypomagnesemia: Plan: Give total of magnesium sulfate 3 g IV Repeat magnesium level in a.m. (3) Acute hypokalemia: Plan: Potassium 2.6 upon admission given KCl 10 mEq rider and 40 mEq p.o. by the ED Placed on NSS plus KCl 20 mEq at high 25 mils per hour Repeat laboratories in a.m. (4) Acute dehydration: Plan: Rehydration as above (5) Hypercholesterolemia: Plan: Pravastatin 80 mg p.o. daily, resume after diarrhea improved (6) CAD (coronary artery disease): Plan: CAD/hypertension/diastolic dysfunction/nonischemic cardiomyopathy- Hold aspirin, clopidogrel, furosemide and losartan. Hold this evening's dose of carvedilol, and reassess blood pressure in a.m. (7) Hypertension, benign: Plan: See above (8) Confusion: Plan: Confusion- Multifactorial: C. difficile infection, electrolyte abnormalities, possibly medication induced and dehydration, among others (9) Depression: Plan: Dementia/depression/anxiety- Resume medications in a.m. Dementia may be contributing to above confusion (10) Anxiety: Plan: See above (11) Non-ischemic cardiomyopathy: Plan: See above (12) Diastolic dysfunction: Plan: See above (13) Peripheral neuropathy: Plan: Peripheral neuropathy/restless legs- Continue topiramate and ropinirole Dose of clonazepam 0.5 mg x 1 this evening History of Present Illness Chief Complaint: The patient presents to the emergency department due to recurrent episodes of diarrhea, and daughter reports that the patient has been more confused Primary Care Provider: Ty Gerber MD The patient is an 81-year-old female who reports having diarrhea for several weeks in October and November, which then resolved, and has resumed again with the resumption of losartan, which her daughter attributes her symptoms of diarrhea to. Patient is status post AICD placement by Dr. Lang 5 days ago. Work-up in the emergency department shows stool studies positive for C. difficile. Potassium 2.6, magnesium 1.6, WBC 13.83 and hemoglobin 12.7. Patient did receive from the ED the following: Magnesium 1 g IV, potassium chloride 10 mEq IV, Klor-Con 40 mEq p.o., and NSS 500 mL. She was started on vancomycin 250 mg p.o. by medicine team while still in the ED Allergies Allergy/AdvReac Type Severity Reaction Status Date / Time cortisone Allergy Intermediate face Verified 12/30/21 18:24 swelling lisinopril Allergy Intermediate face Verified 12/30/21 18:24 swelling atorvastatin AdvReac Unknown DIDN'T Verified 12/30/21 18:24 FEEL WELL Home Medications Medication Instructions Recorded Confirmed Type calcium carbonate 500 mg-vitamin 1 tab PO BID #180 tab 10/08/20 12/30/21 Rx D3 5 mcg (200 unit) tablet (Calcium 500 + D) tramadol 50 mg tablet 50 mg PO DAILY PRN #30 tab 04/25/21 12/30/21 Rx acetaminophen 650 mg 650 - 1,300 mg PO Q12H PRN 07/24/21 12/30/21 History tablet,extended release aspirin 81 mg chewable tablet 81 mg PO QAM 07/24/21 12/30/21 History carvedilol 25 mg tablet (Coreg) 25 mg PO Q12H 08/01/21 12/30/21 History ropinirole 3 mg tablet 3 mg PO HS #30 tab 10/24/21 12/30/21 Rx donepezil 10 mg tablet 10 mg PO DAILY 10/27/21 12/30/21 History duloxetine 30 mg capsule,delayed 30 mg PO DAILY 10/27/21 12/30/21 History release multivitamin 1 tab PO QAM 10/27/21 12/30/21 History ropinirole 0.5 mg tablet 1 mg PO QDL tab 10/27/21 12/30/21 History lactobacillus combination no.9 4 4,000 mmu cells PO DAILY 11/07/21 12/30/21 History billion cell capsule (Adult 50 Plus Probiotic) clopidogrel 75 mg tablet (Plavix) 75 mg PO QAM #90 tab 11/10/21 12/30/21 Rx furosemide 40 mg tablet 40 mg PO DAILY 12/30/21 12/30/21 History gabapentin 100 mg capsule 200 mg PO HS 12/30/21 12/30/21 History losartan 25 mg tablet 25 mg PO DAILY 12/30/21 12/30/21 History pravastatin 80 mg tablet 80 mg PO DAILY 12/30/21 12/30/21 History topiramate 50 mg tablet 100 mg PO HS 12/30/21 12/30/21 History Past Med/Surg History Medical History defect 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 otherwise mild nonobstructive CAD" Chronic combined systolic and diastolic CHF (congestive heart failure) EF 30-35% on May 2021 ECHO Chronic pain Secondary to nerve damage- mostly on right side of body Diastolic dysfunction Esophageal reflux disease Well controlled and stable Hypercholesterolemia Hypertension, benign Left bundle branch block Chronic Migraine HX Nasal fracture S/P FALL OCTOBER 2020 Non-ischemic cardiomyopathy Osteoarthritis Peripheral neuropathy RIGHT LEG Restless legs syndrome SOB (shortness of breath) on exertion SOMETIMES Spinal stenosis Transient ischemic attack (TIA) (~10/27/21) OVER 15 YEARS AGO/TAKING PLAVIX Surgical History History of back surgery laminctomy lumbar spine History of carpal tunnel release RT/LEFT History of cataract surgery RT/LEFT History of colonoscopy History of nasal septoplasty septo plasty and bilateral inferior turbinate reduction on 08/15/21 - Dr. Luevano History of neck surgery cervical laminectomy History of tonsillectomy and adenoidectomy Hx of tympanostomy tubes Maxillary fracture REPAIRED 10/2020 ([facility])- No issues with opening or closing jaw Pacemaker Family History Father Myocardial infarction Mother COPD (chronic obstructive pulmonary disease) Daughter Asthma Other Cancer Hearing loss No family history of adverse response to anesthesia Denies family history of Ovarian cancer Prostate cancer Breast cancer Colorectal cancer Hypertension Social History Smoking Status: Never smoker Second Hand Exposure: No; Do You Dip or Chew Tobacco: No; Hx Alcohol Use: No Hx Substance Use: No Preferred Language: Upper Sorbian Communication Ability: Effective Visual Impairment: Partially Limited Hearing Ability: Use of Hearing Aid Academic Affairs Coordinator Required: No Beliefs That Will Affect Care: None marital status: Current Living Situation: Spouse current occupational status: retired How many Children do You have: 2 Other Information That Helps Us Care for You: No Feels Safe at Home: Yes Safety Concerns: Feels Safe At This Time Childhood Exposure to Second-Hand Smoke: Yes caffeine: Yes (coffee) during the past year weight has: remained stable Dental Care, Regularly: Yes Physical Activity Frequency: Does not Exercise Seatbelt Use: always Sunscreen Use: Yes Do you think of yourself as: straight/heterosexual Assistive Devices: Cane and Glasses Review of Systems Review of Systems: The patient denies chest pain, palpitations, shortness of breath, dyspnea on exertion, cough, lower extremity swelling, sore throat, fevers, chills, sweats, vomiting, abdominal pain, pelvic pain, blood in urine or stool, dysuria, urinary frequency or urgency, lightheadedness, dizziness, headache, memory loss, loss of consciousness, imbalance, focal or generalized weakness, numbness or tingling in arms or legs, generalized arthralgias or myalgias, neck pain, or night sweats. The review of systems is otherwise negative other than for that already noted above, and at least 10 systems have been reviewed. Physical Exam Physical Exam: The patient is awake, alert, occasionally confused, well developed and well nourished, normocephalic and atraumatic, lying in bed and in no acute distress. HEENT--PERRL, EOMI, mucous membranes and oropharynx dry. Neck--supple. No JVD. No bruits. Thyroid normal, trachea midline, no adenopathy. Heart--normal S1 and S2. No murmurs, rubs or gallops. Lungs--clear bilaterally, no respiratory distress, no accessory muscle use. Abdomen--normal bowel sounds and soft. Nontender. Nondistended, no hernias or masses, no organomegaly. Extremities--no cyanosis or clubbing. No edema. Dermatologic--normal skin turgor, normal color, no abnormal lymph nodes, no rash. Neurologic--cranial nerves II through XII grossly intact. Rheumatologic--normal range of motion. Psychiatric--normal affect. Results & Data Results & Data ([facility]) Vital Signs (Past 12 Hours) Vital Signs Temp Pulse Resp BP Pulse Ox 12/30/21 19:31 99 H 13 132/73 100 12/30/21 18:56 97 H 16 151/59 H 99 12/30/21 18:30 93 H 22 150/59 H 97 12/30/21 18:00 102 H 15 134/83 98 12/30/21 17:30 97 H 21 144/76 H 98 12/30/21 16:59 36.6 C 95 H 16 121/65 97 Laboratory Results Laboratory Results WBC 13.83 K/uL (4.8-10.8) H 12/30/21 17:30 RBC 3.95 M/uL (4.2-5.4) L 12/30/21 17:30 Hgb 12.7 g/dL (12.0-16.0) 12/30/21 17:30 Hct 38.7 % (37-47) 12/30/21 17:30 MCV 98.0 fL (80-100) 12/30/21 17:30 MCH 32.2 pg (25-34) 12/30/21 17:30 MCHC 32.8 g/dL (32-36) 12/30/21 17:30 RDW Std Deviation 47.6 fL (36.4-46.3) H 12/30/21 17:30 RDW Coeff of Shahrzad 13.2 % (11.5-14.5) 12/30/21 17:30 Plt Count 164 K/uL (130-400) 12/30/21 17:30 MPV 10.6 fL (7.4-10.4) H 12/30/21 17:30 Immature Gran % (Auto) 0.2 % 12/30/21 17:30 Neut % (Auto) 79.9 % 12/30/21 17:30 Lymph % (Auto) 6.9 % 12/30/21 17:30 [place] % (Auto) 12.4 % 12/30/21 17:30 Eos % (Auto) 0.4 % 12/30/21 17:30 Baso % (Auto) 0.2 % 12/30/21 17:30 Neut # (Auto) 11.05 K/uL (1.4-6.5) H 12/30/21 17:30 Lymph # (Auto) 0.96 K/uL (1.2-3.4) L 12/30/21 17:30 [place] # (Auto) 1.71 K/uL (0.11-0.59) H 12/30/21 17:30 Eos # (Auto) 0.05 K/uL (0-0.5) 12/30/21 17:30 Baso # (Auto) 0.03 K/uL (0-0.2) 12/30/21 17:30 Immature Gran # (Auto) 0.03 K/uL (0.00-0.02) H 12/30/21 17:30 Toxic Granulation 1+ 12/30/21 17:30 Sodium 136 mmol/L (136-145) 12/30/21 17:30 Potassium 2.6 mmol/L (3.5-5.1) L 12/30/21 17:30 Chloride 101 mmol/L (98-107) 12/30/21 17:30 Carbon Dioxide 24 mmol/L (21-32) 12/30/21 17:30 Anion Gap 11 (3-11) 12/30/21 17:30 BUN 21 mg/dl (6-23) 12/30/21 17:30 Creatinine 0.90 mg/dl (0.6-1.2) 12/30/21 17:30 Est Cr Clr Drug Dosing 41.0 ml/min 12/30/21 17:30 Est GFR ( Amer) 69.5 ml/min 12/30/21 17:30 Est GFR (Non-Af Amer) 60.0 ml/min 12/30/21 17:30 BUN/Creatinine Ratio 23.3 (10-20) H 12/30/21 17:30 Glucose 128 mg/dl (70-99(Fasting)) H 12/30/21 17:30 Calcium 9.0 mg/dl (8.5-10.1) 12/30/21 17:30 Magnesium 1.6 mg/dl (1.7-2.4) L 12/30/21 17:30 Total Bilirubin 0.7 mg/dl (0.2-1.0) 12/30/21 17:30 AST 19 U/L (13-39) 12/30/21 17:30 ALT 6 U/L (7-52) L 12/30/21 17:30 Alkaline Phosphatase 50 U/L (34-104) 12/30/21 17:30 Troponin I 0.03 ng/ml (0-0.04) 12/30/21 17:30 Total Protein 6.4 gm/dl (6.0-8.3) 12/30/21 17:30 Albumin 3.8 gm/dl (3.4-5.0) 12/30/21 17:30 Globulin 2.6 gm/dl (2.5-4.0) 12/30/21 17: Albumin/Globulin Ratio 1.5 (0.9-2) 12/30/21 17:30 TSH 2.404 uIu/ml (0.300-4.500) 12/30/21 17:30 Urine Color Yellow 12/30/21 18:06 Urine Appearance Clear (Clear) 12/30/21 18:06 Urine pH 6.0 (4.5-7.5) 12/30/21 18:06 Ur Specific [place] 1.011 (1.000-1.030) 12/30/21 18:06 Urine Protein Negative (Negative) 12/30/21 18:06 Urine Glucose (UA) Negative (Negative) 12/30/21 18:06 Urine Ketones Trace (Negative) H 12/30/21 18:06 Urine Blood Negative (Negative) 12/30/21 18:06 Urine Nitrite Negative (Negative) 12/30/21 18:06 Urine Bilirubin Negative (Negative) 12/30/21 18:06 Urine Urobilinogen Negative (Negative) 12/30/21 18:06 Ur Leukocyte Esterase Trace (Negative) H 12/30/21 18:06 Urine WBC (Auto) 1-5 /hpf (0-5) 12/30/21 18:06 Urine RBC (Auto) 0-4 /hpf (0-4) 12/30/21 18:06 U Hyaline Cast (Auto) 1-5 /lpf (0-5) 12/30/21 18:06 U Epithel Cells (Auto) 20-30 /lpf (0-5) H 12/30/21 18:06 Urine Bacteria (Auto) Negative (Negative) 12/30/21 18:06 Stl C. cayetanensis PCR Not Detected (NotDetected) 12/30/21 18:06 Stool Rotavirus A PCR Not Detected (NotDetected) 12/30/21 18:06 Stl Adenov F 40/41 PCR Not Detected (NotDetected) 12/30/21 18:06 Stool Astrovirus (PCR) Not Detected (NotDetected) 12/30/21 18:06 Stool Campylobacter PCR Not Detected (NotDetected) 12/30/21 18:06 Stl C.difficile Tox A&B Positive Cdiff Toxin (Negative) A* 12/30/21 18:06 Stl C. diff Tox A/B PCR C.diff Gene Detected (NotDetected) A 12/30/21 18:06 Stool Cryptosporidium PCR Not Detected (NotDetected) 12/30/21 18:06 Stl E.coli Shiga Tox PCR Not Detected (NotDetected) 12/30/21 18:06 Stl Enterotoxigenic E PCR Not Detected (NotDetected) 12/30/21 18:06 Stool EPEC (PCR) Not Detected (NotDetected) 12/30/21 18:06 Stool EAEC (PCR) Not Detected (NotDetected) 12/30/21 18:06 Stl E. histolytica PCR Not Detected (NotDetected) 12/30/21 18:06 Stool Giardia Lamblia PCR Not Detected (NotDetected) 12/30/21 18:06 Stool Salmonella PCR Not Detected (NotDetected) 12/30/21 18:06 Stool Sapovirus (PCR) Not Detected (NotDetected) 12/30/21 18:06 Stl P. shigelloides PCR Not Detected (NotDetected) 12/30/21 18:06 Stl Shigella/EIEC PCR Not Detected (NotDetected) 12/30/21 18:06 St Y.enterocolitica PCR Not Detected (NotDetected) 12/30/21 18:06 Stool Vibrio (PCR) Not Detected (NotDetected) 12/30/21 18:06 Stl Vibrio cholerae PCR Not Detected (NotDetected) 12/30/21 18:06 Stl Norovirus GI/GII PCR Not Detected (NotDetected) 12/30/21 18:06 SARS-CoV-2, RNA, NAAT NEGATIVE (NEGATIVE) 12/30/21 18:19 Impressions Chest X-Ray 12/30/21 17:57 XR chest 1V portable CLINICAL HISTORY: Weakness. COMPARISON STUDY: Chest radiograph December 26, 2021. FINDINGS: Left subclavian biventricular pacer/AICD is in place. There is no evidence for pulmonary edema. No pneumothorax or pleural effusion. No consolidation. Cardiac size is at the upper limits of normal. Skinfold projects over the left chest. IMPRESSION: No acute cardiopulmonary findings. ACT 112: Negative or not required by law. Electronically signed by: Kristian Rousseau M.D. 12/30/2021 7:03 PM Code Status & VTE Plan Code Status Full code VTE Prophylaxis Plan VTE Prophylaxis will be ordered: Yes PG Care Time/CCT Total # of Minutes Spent Total Time Spent with Patient: Total time spent is greater than 50% in coordination of care (as documented) at patient's floor/unit and/or counseling patient: Coding Level of Care Code 87288 Initial Inpt Care Lvl 3 Diagnoses C. difficile diarrhea A04.72 Hypomagnesemia E83.42 Acute hypokalemia E87.6 Acute dehydration E86.0 Peripheral neuropathy G62.9 Hypercholesterolemia E78.00 Hypertension, benign I10 CAD (coronary artery disease) I25.10 Anxiety F41.9 Confusion R41.0 Depression F32.9 Non-ischemic cardiomyopathy I42.8 Diastolic dysfunction I51.89
[2021-12-30 21:13] LABS: Cdiff Antigen Positive; Cdiff Toxin A+B Positive Cdiff Toxin (Negative)
[2021-12-30] MEDS: RASPBERRY SYRUP 5 ML UDP PO SCH (22:25)
[2021-12-30] MEDS: VANCOMYCIN HCL 250 MG/5 ML SOLN PO SCH (22:26)
[2021-12-30] MEDS ORDERED: ONDANSETRON INJ 2 MG/ML 2 ML VIAL IV PRN (22:38)
[2021-12-30] MEDS ORDERED: ACETAMINOPHEN 325 MG TAB PO PRN (22:38)
[2021-12-30] MEDS: NSS + 20MEQ KCL 20 MEQ/1,000 ML BAG IV SCH (23:33)
[2021-12-30] MEDS: rOPINIRole HCL 1 MG TABLET PO SCH (23:33)
[2021-12-30] MEDS: TOPIRAMATE 100 MG TAB PO SCH (23:33)
[2021-12-30] MEDS: MAGNESIUM SULFATE / D5W 1 GM/100 ML BAG IV SCH (23:33)
[2021-12-31] MEDS: MAGNESIUM SULFATE / D5W 1 GM/100 ML BAG IV SCH (01:08)
[2021-12-31] MEDS: RASPBERRY SYRUP 5 ML UDP PO SCH ×4 (04:50→21:28)
[2021-12-31] MEDS: VANCOMYCIN HCL 250 MG/5 ML SOLN PO SCH ×4 (04:51→21:28)
[2021-12-31 07:18] LABS: Hematocrit (blood only) 34.9 % (37-47); Hemoglobin 11.2 g/dL (12.0-16.0); Mean Corpuscular Hemoglobin 31.6 pg (25-34); Mean Corpuscular Hgb Conc 32.1 g/dL (32-36); Mean Corpuscular Volume 98.6 fL (80-100); Mean Platelet Volume 10.1 fL (7.4-10.4); Platelet Count 147 K/uL (130-400); RDW Coefficient of Variation 13.3 % (11.5-14.5); RDW Standard Deviation 48.1 fL (36.4-46.3); Red Blood Count 3.54 M/uL (4.2-5.4); White Blood Count 12.36 K/uL (4.8-10.8)
[2021-12-31 07:41] LABS: Basophils # (auto) 0.03 K/uL (0-0.2); Basophils % (auto) 0.2 %; Eosinophils # (auto) 0.13 K/uL (0-0.5); Eosinophils % (auto) 1.1 %; Immature Granulocytes # (auto) 0.02 K/uL (0.00-0.02); Immature Granulocytes % (auto) 0.2 %; Lymphocytes # (auto) 1.33 K/uL (1.2-3.4); Lymphocytes % (auto) 10.8 %; Monocytes # (auto) 1.43 K/uL (0.11-0.59); Monocytes % (auto) 11.6 %; Neutrophils # (auto) 9.42 K/uL (1.4-6.5); Neutrophils % (auto) 76.1 %
[2021-12-31 08:15] LABS: Albumin Globulin Ratio 1.6 (0.9-2); Albumin Level 3.2 gm/dl (3.4-5.0); BUN Creatinine Ratio 18.8 (10-20); Bilirubin,Total 0.5 mg/dl (0.2-1.0); Calcium 7.4 mg/dl (8.5-10.1); Creatinine Clr Calc Pharmacy 57.3 ml/min; Est GFR (Non-African American) 83.7 ml/min; Magnesium 2.4 mg/dl (1.7-2.4); Potassium 2.8 mmol/L (3.5-5.1); Total Protein 5.2 gm/dl (6.0-8.3)
[2021-12-31] MEDS: NSS + 20MEQ KCL 20 MEQ/1,000 ML BAG IV SCH ×2 (09:38→17:30)
[2021-12-31] MEDS: POTASSIUM CHLORIDE / WTR 10 MEQ/100 ML PLCT IV SCH ×2 (09:39→10:53)
[2021-12-31] MEDS: POTASSIUM CHLORIDE CRTAB 20 MEQ TABCR PO SCH ×3 (09:44→21:27)
[2021-12-31] MEDS: ASPIRIN 81 MG ECTAB PO SCH (09:45)
[2021-12-31] MEDS: CLOPIDOGREL BISULFATE 75 MG TAB PO SCH (09:46)
--- NOTE | 2021-12-31 16:21 | Electrocardiogram Report ---
Test Reason : Blood Pressure : / mmHG Vent. Rate : 093 BPM Atrial Rate : 093 BPM P-R Int : 150 ms QRS Dur : 144 ms QT Int : 420 ms P-R-T Axes : 035 185 043 degrees QTc Int : 522 ms Poor data quality, interpretation may be adversely affected Atrial-sensed ventricular-paced rhythm with occasional Premature ventricular complexes Abnormal ECG When compared with ECG of 26-DEC-2021 08:44, Premature ventricular complexes are now Present Vent. rate has decreased BY 8 BPM Confirmed by Renny Kee ([id number]) on 12/31/2021 4:20:28 PM Referred By: REFERRED SELF Confirmed By:Renny Kee
--- NOTE | 2021-12-31 16:24 | Electrocardiogram Report ---
Test Reason : Blood Pressure : / mmHG Vent. Rate : 090 BPM Atrial Rate : 090 BPM P-R Int : 160 ms QRS Dur : 136 ms QT Int : 434 ms P-R-T Axes : 061 222 045 degrees QTc Int : 530 ms Atrial-sensed ventricular-paced rhythm Abnormal ECG When compared with ECG of 30-DEC-2021 18:20, (unconfirmed) Premature ventricular complexes are no longer Present Vent. rate has decreased BY 3 BPM Confirmed by Renny Kee ([id number]) on 12/31/2021 4:23:59 PM Referred By: REFERRED SELF Confirmed By:Renny Kee
[2021-12-31] MEDS: COLESTIPOL HCL 1 GM TAB PO SCH (17:30)
--- NOTE | 2021-12-31 19:06 | Hospitalist Progress Note ---
Date of Service December 31, 2021 Assessment & Plan (1) C. difficile diarrhea: Plan: day #2 of vancomycin. can reduce dose to 125mg QID. has had c diff infection in the past but it was several years ago - not recent. add colestipol 1gm daily. add lactinex. contact precautions. risk factors -- recent hospital stay for ICD placement. recent IV abx (ancef x 2 doses based on records). when I spoke with her /daughter I discussed use of bleach to clean the bathrooms, touch surfaces, etc. discussed washing of linens, sheets, etc discussed that alcohol-based hand sanitizers do NOT kill c diff spores. downgrade diet to clears. cont gentle IV hydration. labs in am. (2) Hypomagnesemia: Plan: repleted and resolved (3) Acute hypokalemia: Plan: Potassium 2.6 upon admission still low this am despite IV/PO replacement plan - * K 40meq PO TID * cont KCL in IV fluids * KCL 20meq IV x 1 (K riders) * K level tonight, then BMP in am * cont telemetry 2nd to #1 (4) Acute dehydration: Plan: still volume contracted on exam and not taking much PO continue IV fluids; reduce rate from 125 to 75cc/hr (5) Hypercholesterolemia: Plan: holding statin for now (6) CAD (coronary artery disease): Plan: cont asa cont plavix holding furosemide and losartan due to low BPs, volume contraction, etc likely can resume coreg tomorrow albeit at lower dose (7) Hypertension, benign: Plan: See above in "CAD" (8) Depression: Plan: cont home meds (9) Anxiety: Plan: cont home meds (10) Non-ischemic cardiomyopathy: Plan: volume contracted at this time hold lasix hold losartan likely can resume coreg tomorrow (11) Peripheral neuropathy: Plan: Continue topiramate and gabapentin (12) Chronic combined systolic and diastolic CHF (congestive heart failure): Plan: volume contracted cont IV fluids hold coreg, ARB, lasix reassess tomorrow for resuming these meds (13) Acute metabolic encephalopathy: Plan: 2nd #1 supportive care (14) NSVT (nonsustained ventricular tachycardia): Plan: as seen on tele keep K close to 4 keep mag close to [address] - just had such placed last week by Dr Salvador Lang cont telemetry Plan: /daughter updated by phone this evening Admission and Anticipated Discharge Date Admission Date: December 30, 2021 Subjective patient continues with liquid stools -- at least 3-4 since waking up this am she has fecal incontinence due to the severity of the diarrhea appetite is very poor denies abdominal pain - it is mainly stomach upset/uncomfortable feeling slight confusion noted during the visit but she does state she had diarrhea earlier in November I spoke with the pt's & daughter by phone -- they report she had c diff infection several years ago - at [facility] tele - 9 beat run of NSVT, no symptoms Review of Systems Review of Systems: gen - no fever cv - no dizziness, no cp, no orthopnea pulm - no dyspnea GI - no vomiting Physical Exam Physical Exam: gen - NAD, slight confusion noted mouth - MM dry skin - poor turgor chest - L upper - ICD in place; small amount of pocket hematoma present, nontender heart - RRR, s1 s2 lungs - CTA b/l abd - mildly distended but soft, NT, BS+, no HSM ext - no edema, pulses 2+ b/l Results & Data Results & Data ([facility]) Vital Signs (Past 12 Hours) Vital Signs Temp Pulse Pulse Pulse Resp BP Pulse Ox 12/31/21 15:51 37.0 C 97 H 20 113/60 97 12/31/21 11:28 36.7 C 80 18 100/56 L 98 12/31/21 08:00 88 Laboratory Results Laboratory Results - last 24 hr 12/31/21 12/31/21 12/31/21 06:46 06:46 17:04 WBC 12.36 H RBC 3.54 L Hgb 11.2 L Hct 34.9 L MCV 98.6 MCH 31.6 MCHC 32.1 RDW Std Deviation 48.1 H RDW Coeff of Shahrzad 13.3 Plt Count 147 MPV 10.1 Immature Gran % (Auto) 0.2 Neut % (Auto) 76.1 Lymph % (Auto) 10.8 [place] % (Auto) 11.6 Eos % (Auto) 1.1 Baso % (Auto) 0.2 Neut # (Auto) 9.42 H Lymph # (Auto) 1.33 [place] # (Auto) 1.43 H Eos # (Auto) 0.13 Baso # (Auto) 0.03 Immature Gran # (Auto) 0.02 Sodium 137 Potassium 2.8 L 3.7 D Chloride 110 H Carbon Dioxide 20 L Anion Gap 7 BUN 12 Creatinine 0.64 Est Cr Clr Drug Dosing 57.3 Est GFR ( Amer) 97.0 Est GFR (Non-Af Amer) 83.7 BUN/Creatinine Ratio 18.8 Glucose 110 H Calcium 7.4 L Magnesium 2.4 Total Bilirubin 0.5 AST 15 ALT 6 L Alkaline Phosphatase 43 Total Protein 5.2 L Albumin 3.2 L Globulin 2.0 L Albumin/Globulin Ratio 1.6 PG Care Time/CCT Total # of Minutes Spent Total Time Spent with Patient: Total time spent is greater than 50% in coordination of care (as documented) at patient's floor/unit and/or counseling patient: Coding Level of Care Code 14490 Subseq Hosp Care Lvl 3 Diagnoses C. difficile diarrhea A04.72 Hypomagnesemia E83.42 Acute hypokalemia E87.6 Acute dehydration E86.0 Hypercholesterolemia E78.00 CAD (coronary artery disease) I25.10 Hypertension, benign I10 Depression F32.9 Anxiety F41.9 Non-ischemic cardiomyopathy I42.8 Peripheral neuropathy G62.9 Chronic combined systolic and diastolic CHF (congestive heart failure) I50.42 Acute metabolic encephalopathy G93.41 NSVT (nonsustained ventricular tachycardia) I47.2
[2021-12-31] MEDS: TOPIRAMATE 100 MG TAB PO SCH (21:27)
[2021-12-31] MEDS: GABAPENTIN 100 MG CAP PO SCH (21:27)
[2021-12-31] MEDS: rOPINIRole HCL 1 MG TABLET PO SCH (21:27)
[2022-01-01] MEDS: VANCOMYCIN HCL 250 MG/5 ML SOLN PO SCH ×4 (03:35→21:09)
[2022-01-01] MEDS: RASPBERRY SYRUP 5 ML UDP PO SCH ×4 (03:35→21:08)
[2022-01-01] MEDS: NSS + 20MEQ KCL 20 MEQ/1,000 ML BAG IV SCH ×2 (06:07→19:16)
[2022-01-01 07:27] LABS: BUN Creatinine Ratio 11.9 (10-20); Calcium 7.2 mg/dl (8.5-10.1); Creatinine Clr Calc Pharmacy 62.3 ml/min; Est GFR (African American) 99.6 ml/min; Potassium 3.6 mmol/L (3.5-5.1)
[2022-01-01] MEDS: COLESTIPOL HCL 1 GM TAB PO SCH (09:06)
[2022-01-01] MEDS: ADVANCED PROBIOTIC 1250 MG CAPSULE PO SCH (09:06)
[2022-01-01] MEDS: DONEPEZIL HCL 10 MG TAB PO SCH (09:06)
[2022-01-01] MEDS: DULoxetine HCL 30 MG CAP PO SCH (09:07)
[2022-01-01] MEDS: CLOPIDOGREL BISULFATE 75 MG TAB PO SCH (09:07)
[2022-01-01] MEDS: ASPIRIN 81 MG ECTAB PO SCH (09:08)
[2022-01-01] MEDS: carvediloL 6.25 MG TAB PO SCH ×2 (12:26→20:32)
[2022-01-01] MEDS: POTASSIUM CHLORIDE CRTAB 20 MEQ TABCR PO SCH ×2 (12:26→20:33)
[2022-01-01] MEDS ORDERED: carvediloL 12.5 MG TAB PO ONE (13:02)
--- NOTE | 2022-01-01 13:07 | Hospitalist Progress Note ---
Date of Service January 01, 2022 Assessment & Plan (1) C. difficile diarrhea: Plan: day #3 of vancomycin 125mg QID. has had c diff infection in the past but it was several years ago - not recent. added colestipol 1gm daily - may need BID dosing. cont lactinex. contact precautions. cont clears - now much appetite; cont IVF. risk factors -- recent hospital stay for ICD placement. recent IV abx (ancef x 2 doses based on records). cont gentle IV hydration. labs in am. (2) Hypomagnesemia: Plan: repleted and resolved repeat a mag level am for stability (3) Acute hypokalemia: Plan: repleted and resolved 2nd to #1 cont with KCL in IV fluids cont with oral K-dur 20meq BID bmp am (4) Acute dehydration: Plan: improved cont fluids 1 more day until appetite improves (5) Hypercholesterolemia: Plan: holding statin for now (6) CAD (coronary artery disease): Plan: cont asa cont plavix holding furosemide and losartan due to low BPs, volume contraction, etc resumed coreg today (7) Hypertension, benign: Plan: See above in "CAD" resumed coreg today (8) Depression: Plan: cont home meds (9) Anxiety: Plan: cont home meds (10) Non-ischemic cardiomyopathy: Plan: no evidence of volume overload hold lasix hold losartan resume coreg today (11) Peripheral neuropathy: Plan: Continue topiramate and gabapentin (12) Chronic combined systolic and diastolic CHF (congestive heart failure): Plan: cont IV fluids cautiously due to poor po intake resuming coreg; holding other cardiac meds (13) Acute metabolic encephalopathy: Plan: 2nd #1 supportive care does have baseline demetia as well (14) NSVT (nonsustained ventricular tachycardia): Plan: as seen on tele keep K close to 4 keep mag close to [address] - just had such placed last week by Dr Salvador Lang cont telemetry I did notify Dr Lang about the small amount of hematoma around her ICD site Plan: /daughter updated by phone last evening will need PT/OT Admission and Anticipated Discharge Date Admission Date: December 30, 2021 Subjective pt sitting in chair during the visit she was mildly confused still with poor appetite still with dyspepsia, cramps and diarrhea no severe abdominal pain, however denies dyspnea or [place] during my visit she was tachycardic on the monitor with pacing Review of Systems Review of Systems: gen - no fever; she is tired cv - no cp or orthopnea pulm - no cough or dyspnea Physical Exam Physical Exam: gen - NAD, ongoing pleasant confusion mouth - MM more moist today skin - turgor improved chest - L upper - ICD in place; small amount of pocket hematoma present, nontender heart - tachy, s1 s2 lungs - CTA b/l abd - soft NT ND BS+ ext - no edema, pulses 2+ b/l Results & Data Results & Data ([facility]) Vital Signs (Past 12 Hours) Vital Signs Temp Pulse Pulse Resp BP Pulse Ox 01/01/22 12:25 103 H 147/80 H 01/01/22 11:08 36.5 C 97 H 22 166/87 H 99 01/01/22 07:42 36.5 C 89 19 150/88 H 98 01/01/22 03:33 36.5 C 96 H 18 135/77 95 Laboratory Results Laboratory Results - last 24 hr 01/01/22 06:36 Sodium 140 Potassium 3.6 Chloride 118 H Carbon Dioxide 17 L Anion Gap 5 BUN 7 Creatinine 0.59 L Est Cr Clr Drug Dosing 62.3 Est GFR ( Amer) 99.6 Est GFR (Non-Af Amer) 86.0 BUN/Creatinine Ratio 11.9 Glucose 97 Calcium 7.2 L PG Care Time/CCT Total # of Minutes Spent Total Time Spent with Patient: Total time spent is greater than 50% in coordination of care (as documented) at patient's floor/unit and/or counseling patient: Coding Level of Care Code 68488 Subseq Hosp Care Lvl 2 Diagnoses C. difficile diarrhea A04.72 Hypomagnesemia E83.42 Acute hypokalemia E87.6 Acute dehydration E86.0 Hypercholesterolemia E78.00 CAD (coronary artery disease) I25.10 Hypertension, benign I10 Depression F32.9 Anxiety F41.9 Non-ischemic cardiomyopathy I42.8 Peripheral neuropathy G62.9 Chronic combined systolic and diastolic CHF (congestive heart failure) I50.42 Acute metabolic encephalopathy G93.41 NSVT (nonsustained ventricular tachycardia) I47.2
[2022-01-01] MEDS: rOPINIRole HCL 1 MG TABLET PO SCH (20:32)
[2022-01-01] MEDS: TOPIRAMATE 100 MG TAB PO SCH (20:32)
[2022-01-01] MEDS: GABAPENTIN 100 MG CAP PO SCH (20:33)
[2022-01-02] MEDS: RASPBERRY SYRUP 5 ML UDP PO SCH ×3 (04:33→17:17)
[2022-01-02] MEDS: VANCOMYCIN HCL 250 MG/5 ML SOLN PO SCH ×2 (04:33→10:00)
[2022-01-02 06:52] LABS: Hematocrit (blood only) 37.5 % (37-47); Hemoglobin 12.1 g/dL (12.0-16.0); Mean Corpuscular Hemoglobin 32.1 pg (25-34); Mean Corpuscular Hgb Conc 32.3 g/dL (32-36); Mean Corpuscular Volume 99.5 fL (80-100); Mean Platelet Volume 10.4 fL (7.4-10.4); Platelet Count 165 K/uL (130-400); RDW Coefficient of Variation 13.7 % (11.5-14.5); RDW Standard Deviation 49.5 fL (36.4-46.3); Red Blood Count 3.77 M/uL (4.2-5.4); White Blood Count 13.71 K/uL (4.8-10.8)
[2022-01-02 07:17] LABS: BUN Creatinine Ratio 8.9 (10-20); Calcium 7.6 mg/dl (8.5-10.1); Creatinine Clr Calc Pharmacy 65.7 ml/min; Est GFR (African American) 101.3 ml/min; Est GFR (Non-African American) 87.4 ml/min; Magnesium 1.9 mg/dl (1.7-2.4)
[2022-01-02] MEDS ORDERED: POTASSIUM CHLORIDE / WTR 10 MEQ/100 ML PLCT IV ONE (07:44)
[2022-01-02] MEDS: ASPIRIN 81 MG ECTAB PO SCH (07:58)
[2022-01-02] MEDS: ADVANCED PROBIOTIC 1250 MG CAPSULE PO SCH (07:58)
[2022-01-02] MEDS: carvediloL 12.5 MG TAB PO SCH ×2 (07:59→20:14)
[2022-01-02] MEDS: DULoxetine HCL 30 MG CAP PO SCH (07:59)
[2022-01-02] MEDS: CLOPIDOGREL BISULFATE 75 MG TAB PO SCH (07:59)
[2022-01-02] MEDS: DONEPEZIL HCL 10 MG TAB PO SCH (07:59)
[2022-01-02] MEDS: NSS + 20MEQ KCL 20 MEQ/1,000 ML BAG IV SCH (09:01)
[2022-01-02] MEDS: POTASSIUM CHLORIDE CRTAB 20 MEQ TABCR PO SCH ×3 (09:01→20:16)
[2022-01-02] MEDS: COLESTIPOL HCL 1 GM TAB PO SCH ×2 (11:00→23:36)
[2022-01-02] MEDS ORDERED: VANCOMYCIN HCL 125 MG/2.5ML SOLN PO SCH (18:00)
[2022-01-02] MEDS ORDERED: VANCOMYCIN HCL 250 MG/5 ML SOLN PO SCH (18:00)
[2022-01-02] MEDS: rOPINIRole HCL 1 MG TABLET PO SCH (20:15)
[2022-01-02] MEDS: TOPIRAMATE 100 MG TAB PO SCH (20:15)
[2022-01-02] MEDS: GABAPENTIN 100 MG CAP PO SCH (20:16)
--- NOTE | 2022-01-02 20:42 | Hospitalist Progress Note ---
Date of Service January 02, 2022 Assessment & Plan (1) C. difficile diarrhea: Plan: day #4 of vancomycin 125mg QID. has had c diff infection in the past but it was several years ago - not recent. cont colestipol 1gm BID. cont lactinex. cont contact precautions. cont gentle hydration - cut rate to 50cc/hr. advance diet to full liquids. risk factors -- recent hospital stay for ICD placement. recent IV abx (ancef x 2 doses based on records perioperatively). labs in am. (2) Hypomagnesemia: Plan: repleted and resolved level today wnl (3) Acute hypokalemia: Plan: repleted and resolved, now low again cont with KCL in IV fluids cont with oral K-dur but increase to 40meq TID bmp am low K 2nd to diarrhea (4) Acute dehydration: Plan: resolved euvolemic on exam today cont fluids but lower rate to 50cc/hr since we are advancing diet as well as given her known CHF (5) Hypercholesterolemia: Plan: holding statin for now (6) CAD (coronary artery disease): Plan: cont asa cont plavix holding furosemide and losartan due to low BPs, volume contraction, etc cont coreg albeit at half her usual dose (7) Hypertension, benign: Plan: See above in "CAD" cont coreg hold diuretics hold Arb (8) Depression: Plan: cont home meds (9) Anxiety: Plan: cont home meds (10) Non-ischemic cardiomyopathy: Plan: no evidence of volume overload hold lasix hold losartan cont coreg cont cautious use of gentle IV fluids (11) Peripheral neuropathy: Plan: Continue topiramate and gabapentin (12) Chronic combined systolic and diastolic CHF (congestive heart failure): Plan: cont IV fluids cautiously but lower the rate to 50cc/hr does not examine volume overloaded today cont coreg holding other meds for now (13) Acute metabolic encephalopathy: Plan: 2nd #1 supportive care does have baseline demetia as well reinforce sleep/awake cycle -blinds open during day, blinds shut at night; lights off at night risperdal 0.5mg HS due to severe sundowning re-eval tomorrow (14) NSVT (nonsustained ventricular tachycardia): Plan: as seen on tele earlier this stay keep K close to 4 keep mag close to [address] - just had such placed last week by Dr Salvador Lang checked her ICD site - he states things look acceptable cont telemetry Plan: /daughter updated by phone earlier this week updated again this evening PT/OT Admission and Anticipated Discharge Date Admission Date: December 30, 2021 Subjective had significant confusion yesterday, overnight, and then again today very impulsive - constantly getting up in her room to walk sitter now at bedside to ensure safety continues with diarrhea - liquid stool, 2-3 times since this am pt did not sleep well last pm patient denies any specific complaints, but she was very confused and could offer no meaningful history tele overnight stable Review of Systems Review of Systems: Unobtainable due to cognitive status Physical Exam Physical Exam: gen - NAD, ongoing pleasant confusion; was calm during my visit - only slight agitation mouth - MMM skin - turgor now wnl chest - L upper - ICD in place; small amount of pocket hematoma present but improved from prior exams, nontender heart - tachy, s1 s2, no murmur lungs - CTA b/l, no rales abd - soft NT ND BS+ ext - no edema, pulses 2+ b/l psych - oriented to person only Results & Data Results & Data ([facility]) Vital Signs (Past 12 Hours) Vital Signs Temp Pulse Pulse Resp BP Pulse Ox 01/02/22 19:01 37.2 C 95 H 21 156/81 H 100 01/02/22 18:35 110 H 01/02/22 16:04 36.7 C 117 H 20 142/80 H 100 01/02/22 11:08 36.7 C 97 H 15 142/70 H 99 Laboratory Results Laboratory Results - last 24 hr 01/02/22 01/02/22 05:57 05:57 WBC 13.71 H RBC 3.77 L Hgb 12.1 Hct 37.5 MCV 99.5 MCH 32.1 MCHC 32.3 RDW Std Deviation 49.5 H RDW Coeff of Shahrzad 13.7 Plt Count 165 MPV 10.4 Sodium 141 Potassium 3.0 L Chloride 116 H Carbon Dioxide 18 L Anion Gap 7 BUN 5 L Creatinine 0.56 L Est Cr Clr Drug Dosing 65.7 Est GFR ( Amer) 101.3 Est GFR (Non-Af Amer) 87.4 BUN/Creatinine Ratio 8.9 L Glucose 93 Calcium 7.6 L Magnesium 1.9 PG Care Time/CCT Total # of Minutes Spent Total Time Spent with Patient: Total time spent is greater than 50% in coordination of care (as documented) at patient's floor/unit and/or counseling patient: Coding Level of Care Code 52445 Subseq Hosp Care Lvl 2 Diagnoses C. difficile diarrhea A04.72 Hypomagnesemia E83.42 Acute hypokalemia E87.6 Acute dehydration E86.0 Hypercholesterolemia E78.00 CAD (coronary artery disease) I25.10 Hypertension, benign I10 Depression F32.9 Anxiety F41.9 Non-ischemic cardiomyopathy I42.8 Peripheral neuropathy G62.9 Chronic combined systolic and diastolic CHF (congestive heart failure) I50.42 Acute metabolic encephalopathy G93.41 NSVT (nonsustained ventricular tachycardia) I47.2
[2022-01-02] MEDS ORDERED: risperiDONE ODT 0.5 MG SOLTAB PO SCH (21:00)
[2022-01-02] MEDS: MELATONIN 3 MG TAB PO SCH (22:29)
[2022-01-03] MEDS: NSS + 20MEQ KCL 20 MEQ/1,000 ML BAG IV SCH (02:02)
[2022-01-03] MEDS: VANCOMYCIN HCL 125 MG/2.5ML SOLN PO SCH ×4 (02:04→18:35)
[2022-01-03] MEDS: RASPBERRY SYRUP 5 ML UDP PO SCH ×4 (02:04→18:35)
[2022-01-03 07:15] LABS: Hematocrit (blood only) 33.9 % (37-47); Hemoglobin 11.2 g/dL (12.0-16.0); Mean Corpuscular Hemoglobin 32.7 pg (25-34); Mean Corpuscular Volume 99.1 fL (80-100); Mean Platelet Volume 9.7 fL (7.4-10.4); Platelet Count 148 K/uL (130-400); RDW Standard Deviation 50.3 fL (36.4-46.3); Red Blood Count 3.42 M/uL (4.2-5.4); White Blood Count 9.75 K/uL (4.8-10.8)
[2022-01-03 07:35] LABS: BUN Creatinine Ratio 6.5 (10-20); Calcium 7.4 mg/dl (8.5-10.1); Creatinine Clr Calc Pharmacy 61.5 ml/min; Est GFR (Non-African American) 84.6 ml/min; Potassium 3.3 mmol/L (3.5-5.1)
[2022-01-03] MEDS ORDERED: MAGNESIUM SULFATE / D5W 1 GM/100 ML BAG IV ONE (08:17)
[2022-01-03] MEDS ORDERED: risperiDONE ODT 0.5 MG SOLTAB PO PRN (08:48)
[2022-01-03] MEDS: SODIUM BICARBONATE 650 MG TAB PO SCH ×2 (08:51→21:54)
[2022-01-03] MEDS: ADVANCED PROBIOTIC 1250 MG CAPSULE PO SCH (08:52)
[2022-01-03] MEDS: DULoxetine HCL 30 MG CAP PO SCH (08:52)
[2022-01-03] MEDS: DONEPEZIL HCL 10 MG TAB PO SCH (08:53)
[2022-01-03] MEDS: CLOPIDOGREL BISULFATE 75 MG TAB PO SCH (08:53)
[2022-01-03] MEDS: carvediloL 12.5 MG TAB PO SCH (08:53)
[2022-01-03] MEDS: POTASSIUM CHLORIDE CRTAB 20 MEQ TABCR PO SCH ×3 (08:53→21:54)
[2022-01-03] MEDS: ASPIRIN 81 MG ECTAB PO SCH (08:54)
[2022-01-03] MEDS: POTASSIUM CHLORIDE / WTR 10 MEQ/100 ML PLCT IV SCH ×2 (09:10→10:14)
[2022-01-03] MEDS: COLESTIPOL HCL 1 GM TAB PO SCH ×2 (10:14→23:30)
--- NOTE | 2022-01-03 10:23 | Hospitalist Progress Note ---
Date of Service January 03, 2022 Assessment & Plan (1) C. difficile diarrhea: Plan: Improving, stools lessening and becoming more formed today Still with lyte abnormalities Leukocytosis now resolved day #5 of 10 of vancomycin 125mg QID. has had c diff infection in the past but it was several years ago - not recent. cont colestipol 1gm BID. cont lactinex. cont contact precautions. dc IVFs now and adv diet to low fiber -continue probiotics risk factors -- recent hospital stay for ICD placement. recent IV abx (ancef x 2 doses based on records perioperatively). labs in am. (2) Metabolic acidosis: Plan: HCO3 down to 17, non AG, hyperchloremic, due to GI losses of HCO3 Topamax can also cause met acidosis although she iis chronically on topamax and previous HCO3 normal prior to this admission -start NaHCO3 650mg po bid (3) Hypomagnesemia: Plan: repleted and resolved not checked today but give another 1 gram given ongoing diarrhea and hypokalemia (4) NSVT (nonsustained ventricular tachycardia): Plan: continues on tele, had another 36 beat run keep K close to 4 keep mag close to [address] - just had such placed last week by Dr Salvador Lang checked her ICD site - he states things look acceptable cont telemetry (5) Acute hypokalemia: Plan: ongoing due to GI losses, poor po intake cont with oral K-dur 40meq TID replace mag -bmp, Mag am (6) Acute metabolic encephalopathy: Plan: 2nd #1 and hospital delirium Improved today it seems after receiving Risperdal and sleeping heavily overnight 3/-5 supportive care does have baseline dementia as well reinforce sleep/awake cycle -blinds open during day, blinds shut at night; lights off at night risperdal 0.5mg HS due to severe sundowning--> make this prn now given it caused her to be excessively drowsy into the mid morning the next day (7) Acute dehydration: Plan: resolved euvolemic on exam today dc IVFs given CHF (8) Hypercholesterolemia: Plan: holding statin for now (9) CAD (coronary artery disease): Plan: cont asa cont plavix holding furosemide and losartan due to low BPs, volume contraction, etc cont coreg and increase back to usual dose given ongoing NSVT (was on half dose since admission for hypovolemia) (10) Hypertension, benign: Plan: BPs elevated now cont coreg and increase to usual dose 25mg bid hold diuretics hold Arb (11) Depression: Plan: cont home duloxetine and topamax? for depression (12) Anxiety: Plan: cont home meds (13) Non-ischemic cardiomyopathy: Plan: no evidence of volume overload hold lasix hold losartan cont coreg s/p ICD placement last week (14) Peripheral neuropathy: Plan: Continue gabapentin, Requip (15) Chronic combined systolic and diastolic CHF (congestive heart failure): Plan: euvolemic cont coreg holding ARB, diuretics as above Plan: DVT proph-SCDs, no Lovenox in setting of hematoma over ICD site and on DAPT Dispo-continued stay, improving, PT/OT evals recommend home with 24/7 care--> hopefully in the next 1-2 days if diarrhea continues to improve and lyte abnormalities improve Admission and Anticipated Discharge Date Admission Date: December 30, 2021 Subjective Pt was sleeping heavily all through the night and AM as per RN. When I saw her at 10:00 she was wide awake and alert, very pleasant, oriented and knows why she's in the hospital. SLightly confused at times. Denies lightheadedness, CP, SOB. Has some occasional abd cramping. Had one stool this AM that she thinks is starting to become more formed. She remains on a 1:1 sitter as she frequently tries to get OOB to ambulate on her own impulsively and concern for falls. Tele with one 36 beat run VT, otherwise NSR rates 90s Review of Systems Review of Systems: All systems reviewed & are unremarkable except as noted in HPI & below Physical Exam Constitutional: WD/WN, vitals as above Eyes: + anicteric sclerae ENMT: external ear and nose normal, oropharynx normal Neck: trachea midline, no thyromegaly Respiratory: normal respiratory effort, lungs clear to auscultation Cardiovascular: RRR, no murmur, no edema Chest (Breasts): Chest: normal inspection of chest Gastrointestinal (Abdomen): normal bowel sounds, soft, nontender, no hepatosplenomegaly Musculoskeletal: Extremities: extremities normal to inspection; no cyanosis and no clubbing Skin: no rashes, warm and dry Neurologic: moves all extremities and awake; no focal motor deficits Psychiatric: Orientation: alert, oriented to person, oriented to place and cooperative Eye Contact: good eye contact Affect: euthymic affect Lymphatic: no lymphedema Results & Data Results & Data ([facility]) Vital Signs (Past 12 Hours) Vital Signs Temp Pulse Pulse Resp BP BP Pulse Ox 01/03/22 07:49 91 H 01/03/22 07:15 36.4 C L 92 H 17 144/73 H 99 01/03/22 04:00 36.6 C 86 18 131/67 97 01/02/22 23:23 36.5 C 90 16 130/90 98 01/02/22 22:20 89 Laboratory Results 01/03/22 01/03/22 Range/Units 07:08 07:08 WBC 9.75 (4.8-10.8) K/uL RBC 3.42 L (4.2-5.4) M/uL Hgb 11.2 L (12.0-16.0) g/dL Hct 33.9 L (37-47) % MCV 99.1 (80-100) fL MCH 32.7 (25-34) pg MCHC 33.0 (32-36) g/dL RDW Std Deviation 50.3 H (36.4-46.3) fL RDW Coeff of Shahrzad 14.0 (11.5-14.5) % Plt Count 148 (130-400) K/uL MPV 9.7 (7.4-10.4) fL Sodium 144 (136-145) mmol/L Potassium 3.3 L (3.5-5.1) mmol/L Chloride 124 H (98-107) mmol/L Carbon Dioxide 17 L (21-32) mmol/L Anion Gap 3 (3-11) BUN 4 L (6-23) mg/dl Creatinine 0.62 (0.6-1.2) mg/dl Est Cr Clr Drug Dosing 61.5 ml/min Est GFR ( Amer) 98.0 ml/min Est GFR (Non-Af Amer) 84.6 ml/min BUN/Creatinine Ratio 6.5 L (10-20) Glucose 82 (70-99(Fasting)) mg/dl Calcium 7.4 L (8.5-10.1) mg/dl PG Care Time/CCT Total # of Minutes Spent Total Time Spent with Patient: Total time spent is greater than 50% in coordination of care (as documented) at patient's floor/unit and/or counseling patient: Coding Level of Care Code 90720 Subseq Hosp Care Lvl 3 Diagnoses C. difficile diarrhea A04.72 Hypomagnesemia E83.42 Acute hypokalemia E87.6 Acute dehydration E86.0 Hypercholesterolemia E78.00 CAD (coronary artery disease) I25.10 Hypertension, benign I10 Depression F32.9 Anxiety F41.9 Non-ischemic cardiomyopathy I42.8 Peripheral neuropathy G62.9 Chronic combined systolic and diastolic CHF (congestive heart failure) I50.42 Acute metabolic encephalopathy G93.41 NSVT (nonsustained ventricular tachycardia) I47.2 Metabolic acidosis E87.2
[2022-01-03] MEDS ORDERED: carvediloL 12.5 MG TAB PO ONE (11:00)
[2022-01-03] MEDS: MELATONIN 3 MG TAB PO SCH (21:51)
[2022-01-03] MEDS: carvediloL 25 MG TAB PO SCH (21:54)
[2022-01-03] MEDS: rOPINIRole HCL 1 MG TABLET PO SCH (21:55)
[2022-01-03] MEDS: TOPIRAMATE 100 MG TAB PO SCH (21:55)
[2022-01-03] MEDS: GABAPENTIN 100 MG CAP PO SCH (21:56)
[2022-01-04] MEDS: VANCOMYCIN HCL 125 MG/2.5ML SOLN PO SCH ×5 (01:42→23:58)
[2022-01-04] MEDS: RASPBERRY SYRUP 5 ML UDP PO SCH ×5 (01:42→23:58)
[2022-01-04 06:42] LABS: Basophils # (auto) 0.05 K/uL (0-0.2); Basophils % (auto) 0.5 %; Eosinophils # (auto) 0.25 K/uL (0-0.5); Eosinophils % (auto) 2.4 %; Hematocrit (blood only) 33.9 % (37-47); Hemoglobin 11.1 g/dL (12.0-16.0); Immature Granulocytes # (auto) 0.12 K/uL (0.00-0.02); Immature Granulocytes % (auto) 1.2 %; Lymphocytes # (auto) 1.39 K/uL (1.2-3.4); Lymphocytes % (auto) 13.5 %; Mean Corpuscular Hemoglobin 32.5 pg (25-34); Mean Corpuscular Hgb Conc 32.7 g/dL (32-36); Mean Corpuscular Volume 99.1 fL (80-100); Mean Platelet Volume 9.5 fL (7.4-10.4); Monocytes # (auto) 0.88 K/uL (0.11-0.59); Monocytes % (auto) 8.6 %; Neutrophils # (auto) 7.58 K/uL (1.4-6.5); Neutrophils % (auto) 73.8 %; Platelet Count 157 K/uL (130-400); RDW Coefficient of Variation 14.1 % (11.5-14.5); RDW Standard Deviation 50.1 fL (36.4-46.3); Red Blood Count 3.42 M/uL (4.2-5.4); White Blood Count 10.27 K/uL (4.8-10.8)
[2022-01-04 07:10] LABS: BUN Creatinine Ratio 6.5 (10-20); Calcium 7.3 mg/dl (8.5-10.1); Est GFR (Non-African American) 84.6 ml/min; Potassium 3.3 mmol/L (3.5-5.1)
[2022-01-04] MEDS: ADVANCED PROBIOTIC 1250 MG CAPSULE PO SCH (08:54)
[2022-01-04] MEDS: ASPIRIN 81 MG ECTAB PO SCH (08:54)
[2022-01-04] MEDS: DULoxetine HCL 30 MG CAP PO SCH (08:54)
[2022-01-04] MEDS: DONEPEZIL HCL 10 MG TAB PO SCH (08:55)
[2022-01-04] MEDS: POTASSIUM CHLORIDE CRTAB 20 MEQ TABCR PO SCH ×3 (08:55→21:27)
[2022-01-04] MEDS: SODIUM BICARBONATE 650 MG TAB PO SCH ×2 (08:56→21:27)
[2022-01-04] MEDS: CLOPIDOGREL BISULFATE 75 MG TAB PO SCH (08:56)
[2022-01-04] MEDS: carvediloL 25 MG TAB PO SCH ×2 (08:57→21:23)
[2022-01-04] MEDS: COLESTIPOL HCL 1 GM TAB PO SCH ×2 (11:36→21:28)
[2022-01-04] MEDS ORDERED: POTASSIUM CHLORIDE CRTAB 20 MEQ TABCR PO STA (17:01)
[2022-01-04] MEDS: MELATONIN 3 MG TAB PO SCH (21:23)
[2022-01-04] MEDS: GABAPENTIN 100 MG CAP PO SCH (21:24)
[2022-01-04] MEDS: TOPIRAMATE 100 MG TAB PO SCH (21:26)
[2022-01-04] MEDS: rOPINIRole HCL 1 MG TABLET PO SCH (21:26)
--- NOTE | 2022-01-04 22:02 | Hospitalist Progress Note ---
Date of Service January 04, 2022 Assessment & Plan (1) C. difficile diarrhea: Plan: Improving, stools lessening and becoming more formed today Still with lyte abnormalities Leukocytosis now resolved Patient continues to have diarrhea and loose stools, however she is improvoing. day #6 of 10 of vancomycin 125mg QID. has had c diff infection in the past but it was several years ago - not recent. cont colestipol 1gm BID. cont lactinex. cont contact precautions. dc IVFs now and adv diet to low fiber -continue probiotics risk factors -- recent hospital stay for ICD placement. recent IV abx (ancef x 2 doses based on records perioperatively). labs in am. (2) Metabolic acidosis: Plan: HCO3 down to 17, non AG, hyperchloremic, due to GI losses of HCO3 Topamax can also cause met acidosis although she iis chronically on topamax and previous HCO3 normal prior to this admission -start NaHCO3 650mg po bid (3) Hypomagnesemia: Plan: repleted and resolved not checked today but give another 1 gram given ongoing diarrhea and hypokalemia (4) NSVT (nonsustained ventricular tachycardia): Plan: continues on tele, had another 36 beat run keep K close to 4 keep mag close to [address] - just had such placed last week by Dr Salvador Lang checked her ICD site - he states things look acceptable cont telemetry (5) Acute hypokalemia: Plan: ongoing due to GI losses, poor po intake cont with oral K-dur 40meq TID replace mag improving. (6) Acute metabolic encephalopathy: Plan: 2nd #1 and hospital delirium Improved today it seems after receiving Risperdal and sleeping heavily overnight 3/4-3/5 supportive care does have baseline dementia as well reinforce sleep/awake cycle -blinds open during day, blinds shut at night; lights off at night risperdal 0.5mg HS due to severe sundowning--> make this prn now given it caused her to be excessively drowsy into the mid morning the next day (7) Acute dehydration: Plan: resolved euvolemic on exam today dc IVFs given CHF (8) Hypercholesterolemia: Plan: holding statin for now (9) CAD (coronary artery disease): Plan: cont asa cont plavix holding furosemide and losartan due to low BPs, volume contraction, etc cont coreg and increase back to usual dose given ongoing NSVT (was on half dose since admission for hypovolemia) (10) Hypertension, benign: Plan: BPs elevated now cont coreg and increase to usual dose 25mg bid hold diuretics hold Arb (11) Depression: Plan: cont home duloxetine and topamax? for depression (12) Anxiety: Plan: cont home meds (13) Non-ischemic cardiomyopathy: Plan: no evidence of volume overload hold lasix hold losartan cont coreg s/p ICD placement last week (14) Peripheral neuropathy: Plan: Continue gabapentin, Requip (15) Chronic combined systolic and diastolic CHF (congestive heart failure): Plan: euvolemic cont coreg holding ARB, diuretics as above Plan: DVT proph-SCDs, no Lovenox in setting of hematoma over ICD site and on DAPT Dispo-continued stay, improving, PT/OT evals recommend home with 24/05 care--> hopefully in the next 1-2 days if diarrhea continues to improve and lyte abnormalities improve Admission and Anticipated Discharge Date Admission Date: December 30, 2021 Subjective 81 yo female reports no new symptoms. Patient continues to have loose BM, she had 3 within past 8 hours. Review of Systems Review of Systems: All systems reviewed & are unremarkable except as noted in HPI & below Physical Exam Physical Exam: gen - NAD, ongoing pleasant, calm thoughout visit. mouth - MMM skin - turgor now wnl chest - L upper - ICD in place; small amount of pocket hematoma present but improved from prior exams, nontender heart - tachy, s1 s2, no murmur lungs - CTA b/l, no rales abd - soft NT ND BS+ ext - no edema, pulses 2+ b/l psych - oriented to person only Results & Data Results & Data ([place]) Vital Signs (Past 12 Hours) Vital Signs Temp Pulse Pulse Resp BP Pulse Ox 01/04/22 21:22 98 H 149/81 H 01/04/22 18:48 36.6 C 101 H 18 147/89 H 99 01/04/22 15:27 93 H 01/04/22 15:09 36.6 C 89 16 130/87 99 01/04/22 11:28 36.6 C 95 H 16 148/95 H 99 PG Care Time/CCT Total # of Minutes Spent Total Time Spent with Patient: Total time spent is greater than 50% in coordination of care (as documented) at patient's floor/unit and/or counseling patient: Coding Level of Care Code 22468 Subseq Hosp Care Lvl 2 Diagnoses C. difficile diarrhea A04.72 Metabolic acidosis E87.2 Hypomagnesemia E83.42 NSVT (nonsustained ventricular tachycardia) I47.2 Acute hypokalemia E87.6 Acute metabolic encephalopathy G93.41 Acute dehydration E86.0 Hypercholesterolemia E78.00 CAD (coronary artery disease) I25.10 Hypertension, benign I10 Depression F32.9 Anxiety F41.9 Non-ischemic cardiomyopathy I42.8 Peripheral neuropathy G62.9 Chronic combined systolic and diastolic CHF (congestive heart failure) I50.42 Time Spent (min) 25
[2022-01-05] MEDS: RASPBERRY SYRUP 5 ML UDP PO SCH ×3 (06:10→18:28)
[2022-01-05] MEDS: VANCOMYCIN HCL 125 MG/2.5ML SOLN PO SCH ×3 (06:14→18:28)
[2022-01-05 06:37] LABS: Hemoglobin 11.3 g/dL (12.0-16.0); Mean Corpuscular Hgb Conc 32.3 g/dL (32-36); Mean Corpuscular Volume 99.2 fL (80-100); Mean Platelet Volume 9.8 fL (7.4-10.4); Platelet Count 161 K/uL (130-400); RDW Coefficient of Variation 14.4 % (11.5-14.5); Red Blood Count 3.53 M/uL (4.2-5.4); White Blood Count 9.07 K/uL (4.8-10.8)
[2022-01-05 07:00] LABS: Calcium 7.5 mg/dl (8.5-10.1); Creatinine Clr Calc Pharmacy 56.4 ml/min; Est GFR (African American) 95.5 ml/min; Est GFR (Non-African American) 82.4 ml/min; Magnesium 1.9 mg/dl (1.7-2.4); Potassium 3.9 mmol/L (3.5-5.1)
[2022-01-05] MEDS: CLOPIDOGREL BISULFATE 75 MG TAB PO SCH (08:16)
[2022-01-05] MEDS: carvediloL 25 MG TAB PO SCH ×2 (08:16→21:25)
[2022-01-05] MEDS: DONEPEZIL HCL 10 MG TAB PO SCH (08:16)
[2022-01-05] MEDS: SODIUM BICARBONATE 650 MG TAB PO SCH ×2 (08:17→21:26)
[2022-01-05] MEDS: POTASSIUM CHLORIDE CRTAB 20 MEQ TABCR PO SCH ×3 (08:17→21:20)
[2022-01-05] MEDS: DULoxetine HCL 30 MG CAP PO SCH (08:18)
[2022-01-05] MEDS: ASPIRIN 81 MG ECTAB PO SCH (08:18)
[2022-01-05] MEDS: ADVANCED PROBIOTIC 1250 MG CAPSULE PO SCH (08:18)
[2022-01-05] MEDS: COLESTIPOL HCL 1 GM TAB PO SCH ×2 (12:53→21:25)
--- NOTE | 2022-01-05 17:34 | Hospitalist Progress Note ---
Date of Service January 05, 2022 Assessment & Plan (1) C. difficile diarrhea: Plan: Improving, stools lessening and becoming more formed today Still with lyte abnormalities Leukocytosis now resolved Patient continues to have diarrhea and loose stools, however she is improvoing. day #7 of 10 of vancomycin 125mg QID. has had c diff infection in the past but it was several years ago - not recent. cont colestipol 1gm BID. cont lactinex. cont contact precautions. dc IVFs now and adv diet to low fiber -continue probiotics -continue above treatment. -patient finally feeling better. will need 24/7 care. unable to reach family. will try again in AM. risk factors -- recent hospital stay for ICD placement. recent IV abx (ancef x 2 doses based on records perioperatively). labs in am. (2) Metabolic acidosis: Plan: HCO3 now 18, non AG, hyperchloremic, due to GI losses of HCO3 Topamax can also cause met acidosis although she iis chronically on topamax and previous HCO3 normal prior to this admission -continue NaHCO3 650mg po bid (3) Hypomagnesemia: Plan: repleted and resolved not checked today but give another 1 gram given ongoing diarrhea and hypokalemia (4) NSVT (nonsustained ventricular tachycardia): Plan: continues on tele, had another 36 beat run keep K close to 4 keep mag close to [address] - just had such placed last week by Dr Salvador Lang checked her ICD site - he states things look acceptable cont telemetry (5) Acute hypokalemia: Plan: ongoing due to GI losses, poor po intake cont with oral K-dur 40meq TID replace mag improving. (6) Acute metabolic encephalopathy: Plan: 2nd #1 and hospital delirium Improved today it seems after receiving Risperdal and sleeping heavily overnight 3/4-3/5 supportive care does have baseline dementia as well reinforce sleep/awake cycle -blinds open during day, blinds shut at night; lights off at night risperdal 0.5mg HS due to severe sundowning--> make this prn now given it caused her to be excessively drowsy into the mid morning the next day (7) Acute dehydration: Plan: resolved euvolemic on exam today dc IVFs given CHF (8) Hypercholesterolemia: Plan: holding statin for now (9) CAD (coronary artery disease): Plan: cont asa cont plavix holding furosemide and losartan due to low BPs, volume contraction, etc cont coreg and increase back to usual dose given ongoing NSVT (was on half dose since admission for hypovolemia) (10) Hypertension, benign: Plan: BPs elevated now cont coreg and increase to usual dose 25mg bid hold diuretics hold Arb (11) Depression: Plan: cont home duloxetine and topamax? for depression (12) Anxiety: Plan: cont home meds (13) Non-ischemic cardiomyopathy: Plan: no evidence of volume overload hold lasix hold losartan cont coreg s/p ICD placement last week (14) Peripheral neuropathy: Plan: Continue gabapentin, Requip (15) Chronic combined systolic and diastolic CHF (congestive heart failure): Plan: euvolemic cont coreg holding ARB, diuretics as above Plan: DVT proph-SCDs, no Lovenox in setting of hematoma over ICD site and on DAPT Dispo-continued stay, improving, PT/OT evals recommend home with / care--> hopefully in the next 1-2 days if diarrhea continues to improve and lyte abnormalities improve Admission and Anticipated Discharge Date Admission Date: December 30, 2021 Subjective Patient reports she is able to control her bowels today. She had one small BM today. She states she is not ready for discharge. Review of Systems Review of Systems: All systems reviewed & are unremarkable except as noted in HPI & below Physical Exam Physical Exam: gen - NAD, ongoing pleasant, calm thoughout visit. mouth - MMM skin - turgor now wnl chest - L upper - ICD in place; small amount of pocket hematoma present but impr markos from prior exams, nontender heart - tachy, s1 s2, no murmur lungs - CTA b/l, no rales abd - soft NT ND BS+ ext - no edema, pulses 2+ b/l psych - oriented to person only Results & Data Results & Data (MN) Vital Signs (Past 12 Hours) Vital Signs Temp Pulse Resp BP Pulse Ox 01/05/22 15:41 36.8 C 90 21 145/66 H 98 01/05/22 07:13 36.6 C 92 H 18 118/69 98 PG Care Time/CCT Total # of Minutes Spent Total Time Spent with Patient: Total time spent is greater than 50% in coordination of care (as documented) at patient's floor/unit and/or counseling patient: Coding Level of Care Code 93387 Subseq Hosp Care Lvl 2 Diagnoses C. difficile diarrhea A04.72 Metabolic acidosis E87.2 Hypomagnesemia E83.42 NSVT (nonsustained ventricular tachycardia) I47.2 Acute hypokalemia E87.6 Acute metabolic encephalopathy G93.41 Acute dehydration E86.0 Hypercholesterolemia E78.00 CAD (coronary artery disease) I25.10 Hypertension, benign I10 Depression F32.9 Anxiety F41.9 Non-ischemic cardiomyopathy I42.8 Peripheral neuropathy G62.9 Chronic combined systolic and diastolic CHF (congestive heart failure) I50.42 Time Spent (min) 25
[2022-01-05] MEDS: rOPINIRole HCL 1 MG TABLET PO SCH (21:20)
[2022-01-05] MEDS: GABAPENTIN 100 MG CAP PO SCH (21:25)
[2022-01-05] MEDS: MELATONIN 3 MG TAB PO SCH (21:25)
[2022-01-05] MEDS: TOPIRAMATE 100 MG TAB PO SCH (21:27)
[2022-01-06] MEDS: VANCOMYCIN HCL 125 MG/2.5ML SOLN PO SCH ×3 (01:03→12:41)
[2022-01-06] MEDS: RASPBERRY SYRUP 5 ML UDP PO SCH ×3 (01:03→12:41)
[2022-01-06 08:33] LABS: Hematocrit (blood only) 33.8 % (37-47); Hemoglobin 11.1 g/dL (12.0-16.0); Mean Corpuscular Hemoglobin 32.8 pg (25-34); Mean Corpuscular Hgb Conc 32.8 g/dL (32-36); Mean Platelet Volume 9.6 fL (7.4-10.4); Platelet Count 165 K/uL (130-400); RDW Coefficient of Variation 14.8 % (11.5-14.5); RDW Standard Deviation 52.1 fL (36.4-46.3); Red Blood Count 3.38 M/uL (4.2-5.4)
[2022-01-06] MEDS: ASPIRIN 81 MG ECTAB PO SCH (08:58)
[2022-01-06] MEDS: DULoxetine HCL 30 MG CAP PO SCH (08:58)
[2022-01-06] MEDS: DONEPEZIL HCL 10 MG TAB PO SCH (08:59)
[2022-01-06] MEDS: POTASSIUM CHLORIDE CRTAB 20 MEQ TABCR PO SCH ×2 (08:59→14:57)
[2022-01-06] MEDS: SODIUM BICARBONATE 650 MG TAB PO SCH (08:59)
[2022-01-06] MEDS: CLOPIDOGREL BISULFATE 75 MG TAB PO SCH (09:00)
[2022-01-06] MEDS: ADVANCED PROBIOTIC 1250 MG CAPSULE PO SCH (09:00)
[2022-01-06] MEDS: carvediloL 25 MG TAB PO SCH (09:00)
[2022-01-06 09:04] LABS: BUN Creatinine Ratio 16.7 (10-20); Calcium 7.7 mg/dl (8.5-10.1); Est GFR (African American) 99.1 ml/min; Est GFR (Non-African American) 85.5 ml/min
[2022-01-06] MEDS: COLESTIPOL HCL 1 GM TAB PO SCH (11:47)
--- NOTE | 2022-01-06 15:10 | Electrocardiogram Report ---
Test Reason : Blood Pressure : / mmHG Vent. Rate : 066 BPM Atrial Rate : 066 BPM P-R Int : 132 ms QRS Dur : 118 ms QT Int : 418 ms P-R-T Axes : 075 192 140 degrees QTc Int : 438 ms Atrial-sensed ventricular-paced rhythm Abnormal ECG When compared with ECG of 31-DEC-2021 05:06, Vent. rate has decreased BY 24 BPM Confirmed by Clay Cortes ([id number]) on 01/06/2022 3:10:22 PM Referred By: REFERRED SELF Confirmed By:Clay Cortes
--- NOTE | 2022-01-10 20:56 | Discharge Summary ---
Date of Service January 06, 2022 Admission HPI Per Admitting Provider The patient is an 81-year-old female who reports having diarrhea for several weeks in October and November, which then resolved, and has resumed again with the resumption of losartan, which her daughter attributes her symptoms of diarrhea to. Patient is status post AICD placement by Dr. Lang 5 days ago. Work-up in the emergency department shows stool studies positive for C. difficile. Potassium 2.6, magnesium 1.6, WBC 13.83 and hemoglobin 12.7. Patient did receive from the ED the following: Magnesium 1 g IV, potassium chloride 10 mEq IV, Klor-Con 40 mEq p.o., and NSS 500 mL. She was started on vancomycin 250 mg p.o. by medicine team while still in the ED Principal Diagnosis C. Difficile diarrhea Discharge Exam gen - NAD, ongoing pleasant, calm thoughout visit. mouth - MMM skin - turgor now wnl chest - L upper - ICD in place; small amount of pocket hematoma present but improved from prior exams, nontender heart - tachy, s1 s2, no murmur lungs - CTA b/l, no rales abd - soft NT ND BS+ ext - no edema, pulses 2+ b/l psych - oriented to person only Discharge Data Allergies Allergy/AdvReac Type Severity Reaction Status Date / Time cortisone Allergy Intermediate face Verified 12/30/21 18:24 swelling lisinopril Allergy Intermediate face Verified 12/30/21 18:24 swelling atorvastatin AdvReac Unknown DIDN'T Verified 12/30/21 18:24 FEEL WELL Consultations 12/30/21 19:28 ED Decision to Admit Stat Hospital Course (1) C. difficile diarrhea: Improving, stools lessening and becoming more formed today Still with lyte abnormalities Leukocytosis now resolved Patient continues to have diarrhea and loose stools, however she is improvoing. day #8 of 10 of vancomycin 125mg QID. will require 3 more days of treatment to complete 10 days. has had c diff infection in the past but it was several years ago - not recent. cont colestipol 1gm BID. cont lactinex. cont contact precautions. dc IVFs now and adv diet to low fiber -continue probiotics -continue above treatment. -patient finally feeling better. will need 24/7 care. Family agreeable to discharge. risk factors -- recent hospital stay for ICD placement. recent IV abx (ancef x 2 doses based on records perioperatively). (2) Metabolic acidosis: HCO3 now 18, non AG, hyperchloremic, due to GI losses of HCO3 Topamax can also cause met acidosis although she iis chronically on topamax and previous HCO3 normal prior to this admission -required NaHCO3 650mg po bid during hospital stay (3) Hypomagnesemia: repleted and resolved not checked today but give another 1 gram given ongoing diarrhea and hypokalemia (4) NSVT (nonsustained ventricular tachycardia): continues on tele, had another 36 beat run keep K close to 4 keep mag close to [address] - just had such placed last week by Dr Salvador Lang checked her ICD site - he states things look acceptable cont telemetry (5) Acute hypokalemia: ongoing due to GI losses, poor po intake cont with oral K-dur 40meq TID replace mag improving. (6) Acute metabolic encephalopathy: 2nd #1 and hospital delirium Improved today it seems after receiving Risperdal and sleeping heavily overnight 3/-01/03 supportive care does have baseline dementia as well reinforce sleep/awake cycle -blinds open during day, blinds shut at night; lights off at night risperdal 0.5mg HS due to severe sundowning--> make this prn now given it caused her to be excessively drowsy into the mid morning the next day (7) Acute dehydration: resolved euvolemic on exam today dc IVFs given CHF (8) Hypercholesterolemia: holding statin for now (9) CAD (coronary artery disease): cont asa cont plavix holding furosemide and losartan due to low BPs, volume contraction, etc cont coreg and increase back to usual dose given ongoing NSVT (was on half dose since admission for hypovolemia) resumed lasix at discharge as diarrhea has improved (10) Hypertension, benign: BPs elevated now cont coreg and increase to usual dose 25mg bid hold diuretics hold Arb (11) Depression: cont home duloxetine and topamax? for depression (12) Anxiety: cont home meds (13) Non-ischemic cardiomyopathy: no evidence of volume overload hold lasix hold losartan cont coreg s/p ICD placement last week resume meds at discharge. (14) Peripheral neuropathy: Continue gabapentin, Requip (15) Chronic combined systolic and diastolic CHF (congestive heart failure): euvolemic cont coreg holding ARB, diuretics as above DVT proph-SCDs, no Lovenox in setting of hematoma over ICD site and on DAPT Total Time Total Time Spent Total Time Spent (In Minutes): 35 Discharge Plan Discharge Items Patient Disposition: Home - Self-Care Reason For Visit: DIARRHEA, HYPOKALEMIA, HYPOMAGNESEMIA, CONFUSION Discharge Diagnosis: Clostridium difficile Activity: Resume your previous activity Non-emergency contact: Primary Care Provider Call non-emergency contact if: you have any medication questions Follow-up/Referrals: Ty Gerber MD [Primary Care Provider] - Diet: Regular and Low Fiber Addtl Attending Provider Instructions: Continue with vancomycin for a little over 3 more days. Take 1 capusle every 6 hours (4 times a day) Take one capsule tonight and then morning, noon, afternoon, evening. Information for Patients C. diffgerms are carried from person to person in poop. If someone withC. diff(or caring for someone withC. diff) doesnt clean their hands with soap and water after using the bathroom, they can spread the germs to people and things they touch. C. diffcan also live on peoples skin. People who touch an infected persons skin can rock picker the germs on their hands. Taking a shower with soap and water can reduce theC. diffon your skin and lessen the chance of it spreading. C. diffgerms are so small relative to our size that if you were the size of the state [facility], a germ would be the size of a baseball home plate. Theres no way you can seeC. diffgerms on your hands, but that doesnt mean theyre not there. Washing with soap and water is the best way to prevent the spread from person to person. Remember: you can come in contact withC. diffgermsand even carry them on, or in, your bodyand not get sick. But that doesnt mean you cant spread the germs to others. Wash your hands with soap and water every time you use the bathroom and always before you eat. Remind relatives and friends taking care of you to do the same. Try to use a separate bathroom if you have diarrhea. If you cant, be sure the bathroom is well cleaned before others use it. Take showers and wash with soap to remove anyC. diffgerms you could be carrying on your body. Top of Page https://www.cdc.gov/cdiff/prevent.html# How do I killC. diffgerms at home? FindingC. diffgerms in the home is not unusual, even when no one in the home has been ill withC. diff. Most healthy adults who come in contact withC. diff in the home wont get sick. Hospitals use special cleaning products to killC. diff, but you can make a wallpaper cleaner at home. Mix 1 part bleach to 9 parts water. Surfaces Focus on regularly cleaning items that are touched by hands. These include but are not limited to: * doorknobs * electronics (be careful because bleach can damage many electronics and plastics) * refrigerator handles * shared cups * toilet flushers and toilet seats Laundry If someone in your house hasC. diff, wash items they touch before others use them. These include but are not limited to: * bed linens * towels * household linens * clothing, especially underwear If these items have visible poop, rinse them well before washing. Then launder in a washer and dryer, using the hottest water that is safe for t hose items. Use chlorine bleach if the items can be safely washed with it. Consider wearing gloves when handling dirty laundry and always wash your hands with soap and water after, even if you use gloves. Its OK to take clothes to a general foundry worker that were worn by a patient infected withC. diff. However, dry cleaning isnt as effective as other methods at killing the spores. Therefore, this option should be used only for clothes that cant be machine-washed. Pending Studies at Discharge: No Stand-Alone Forms: My [employer], Smoking Cessation Medications and DC Order Prescriptions: New vancomycin 125 mg capsule 125 mg PO Q6H Qty: 14 RF: 0 Continued ropinirole 3 mg tablet 3 mg PO HS Qty: 30 RF: 2 clopidogrel [Plavix] 75 mg tablet 75 mg PO QAM Qty: 90 RF: 3 Adult 50 Plus Probiotic 4 billion cell capsule 4,000 mmu cells PO DAILY RF: 0 duloxetine 30 mg capsule,delayed release(DR/EC) 30 mg PO DAILY RF: 0 donepezil 10 mg tablet 10 mg PO DAILY RF: 0 calcium carbonate-vitamin D3 [Calcium 500 + D] 500 mg(1,250mg) -200 unit tablet 1 tab PO BID Qty: 180 RF: 3 tramadol 50 mg tablet 50 mg PO DAILY PRN (Reason: Pain) Qty: 30 RF: 5 ropinirole 0.5 mg tablet 1 mg PO QDL RF: 0 multivitamin Tablet 1 tab PO QAM RF: 0 pravastatin 80 mg tablet 80 mg PO DAILY RF: 0 losartan 25 mg Tablet 25 mg PO DAILY RF: 0 furosemide 40 mg tablet 40 mg PO DAILY RF: 0 gabapentin 100 mg capsule 200 mg PO HS RF: 0 topiramate 50 mg tablet 100 mg PO HS RF: 0 aspirin 81 mg tablet,chewable 81 mg PO QAM RF: 0 acetaminophen 650 mg Tablet Extended Release 650 - 1,300 mg PO Q12H PRN (Reason: Pain) RF: 0 carvedilol [Coreg] 25 mg tablet 25 mg PO Q12H RF: 0 Discharge Orders: Discharge Order (Routine); Ordered 01/06/22 Ordered By: Maximo Vázquez/Other Patient Handouts: What Is C. Diff? Admission Data Admit Date/Time: 12/30/21 20:43 Attending Provider: Maximo Tolbert Admit Provider: Clint Estrada Primary Care Provider: Ty Gerber Other Providers: Clint Estrada Other Interventions: Discharge Summary Assessment (RN) Last Done: 01/06/22 16:38 Coding Level of Care Code D/C DAY MANAGEMENT >30 MINS Diagnoses C. difficile diarrhea A04.72 Metabolic acidosis E87.2 Hypomagnesemia E83.42 NSVT (nonsustained ventricular tachycardia) I47.2 Acute hypokalemia E87.6 Acute metabolic encephalopathy G93.41 Acute dehydration E86.0 Hypercholesterolemia E78.00 CAD (coronary artery disease) I25.10 Hypertension, benign I10 Depression F32.9 Anxiety F41.9 Non-ischemic cardiomyopathy I42.8 Peripheral neuropathy G62.9 Chronic combined systolic and diastolic CHF (congestive heart failure) I50.42
== END 2022-01-06 17:24 | disposition home or self-care (01) | DRG 371 ==
LOC: ED 16:53 → 2E 20:43 → SUATTDRO 20:43 → 2E 21:50 → 3N 01-05 18:18